=== PATIENT | male | born 1940 | race Caucasian/White ===

== ENCOUNTER 2020-09-12 07:20 | Inpatient (IN) | payer MEDICARE, SELFPAY ==
[2020-09-12] VITALS (16 sets, daily range): BP systolic 95–126; BP diastolic 51–83; PULSE 74–98; RESP 16–26; TEMP 36.8–37.7; O2SAT 93–98; BMI 25.8; BMI 28.2
--- NOTE | 2020-09-12 07:24 | EKG12_ITS ---
Test Reason : PALP Blood Pressure : / mmHG Vent. Rate : 096 BPM Atrial Rate : 096 BPM P-R Int : 170 ms QRS Dur : 120 ms QT Int : 406 ms P-R-T Axes : 070 050 093 degrees QTc Int : 512 ms Normal sinus rhythm Septal infarct , age undetermined Abnormal ECG Confirmed by SHAUNNA ISAACS, MARY ([id number]), editorial specialist JAZLYN DAO ([id number]) on 09/16/2020 9:11:27 AM Referred By: NELSON Confirmed By:DEYA MAZA MD
--- NOTE | 2020-09-12 07:24 | RAD_ITS ---
STUDY: X-RAY CHEST REASON FOR EXAM: Male, 80 years old. Chest pain TECHNIQUE: Frontal view of the chest COMPARISON: None. FINDINGS: There are bilateral interstitial opacities. There are no pleural effusions. There is no pneumothorax. The heart is enlarged. The patient is status post sternotomy. The visualized osseous structures are within normal limits. RAD/Chest 1 View (Portable) IMPRESSION: Bilateral interstitial opacities which may be due to infection or edema. Clinical correlation is recommended. Cardiomegaly. Status post sternotomy. Electronically Signed: Elvin Balderrama MD at 8:14 EDT Tel , Service support ,
--- NOTE | 2020-09-12 07:27 | NURSING ---
NO OLD EKGS
[2020-09-12] MEDS: Aspirin 81 MG TAB.CHEW 324 MG PO (07:32)
[2020-09-12 07:39] LABS: Basophil# 0.07 X10^3/uL; Basophil% 0.6 % (0-1); Eosinophil# 0.07 X10^3/uL; Eosinophils% 0.6 % (0-5); Hematocrit 42.3 % (40-54); Hemoglobin 13.6 g/dL (13.0-16.5); Lymphocyte % 10.3 % (19-41); Mean Corp Hgb Conc 32.2 g/dL (32-36); Mean Corpuscular Hgb 29.9 pg (27.0-32.0); Monocyte# 1.08 X10^3/uL; Monocyte% 8.6 % (0-10); NRBC Flagged by Analyzer 0 % (0-5); Neutrophil % 79.3 % (47-70); Platelet Count 262 K/mm3 (150-450); RBC Distribution Width CV 13.2 % (11.6-14.6); RBC Distribution Width SD 45.1 fl (35.1-43.9); Red Blood Count 4.55 M/mm3 (4.6-6.2); White Blood Count 12.6 K/mm3 (4.4-11.0)
--- NOTE | 2020-09-12 07:50 | ED.DCSUM_ITS ---
- ER Visit Summary Date of Service: 09/12/20 Chief Complaint: Palpitations History of Present Illness: The patient is a [address] 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 Fierro. Patient reports that he has had palpitations intermittently for the past 3 to 4 months. States that they vary in length of time. He denies any chest pain with these. However, he does report that when he exerts himself he gets abdominal pain. He describes this as sore muscles it is 6 out of 10 at worst and 2 out of 10 currently. States that there is no change with food. Patient reports that he has diaphoresis and shortness of breath that come and go. Does not seem to be related to the palpitations. He also complains of orthopnea for the past week. He denies PND. Patient got his second Covid vaccine at the end of June. He denies any fever, chills, cough, diarrhea, melena, or hematochezia. Physical Examination: Vitals: Stable. Afebrile. General: Well-nourished and well-developed. Head: Normocephalic atraumatic. Neck: Supple, no lymphadenopathy. No JVD. Nontender. Cardiovascular: Regular rate and rhythm. 2 out of 6 systolic murmur. Respiratory: No respiratory distress. Clear to auscultation bilaterally. Abdominal: Soft, nontender, nondistended, normal bowel sounds. No guarding, rebound, or peritoneal signs. Back: Nontender. Extremities: Nontender, 2+ edema of his lower extremities bilaterally. Skin: Minimal erythema to his legs bilaterally, no rash. Neurologic: Alert and oriented ?3. Cranial nerves II through XII are intact. Normal strength and sensation. Psych: Normal affect. Test Results: EKG is sinus at 96. There are Q waves in leads V2 and V3. There is no old EKG for comparison. CBC shows a white count of 12.6 with 79 segmented neutrophils and 10 lymphocytes. Chem-7 shows a BUN of 27, creatinine 1.42, glu cose of 126. LFTs are normal. Lipase is 65. Troponin 0 0.046. TSH is 7.36. Free T4 1.1, free T3 2.0. COVID-19 is negative. BNP is 659.7. Clinical Impression(s) from Imaging Studies Chest X-Ray 09/12/20 07:24 IMPRESSION: Bilateral interstitial opacities which may be due to infection or edema. Clinical correlation is recommended. Cardiomegaly. Status post sternotomy. Electronically Signed: Elvin Balderrama MD at 8:14 EDT Tel , Service support , Emergency Department Course and Treatment: Patient had an IV placed. He was given aspirin p.o. He is resting comfortably. Treatment Plan: Patient does not have chest pain with exertion. However, he does complain of abdominal pain with exertion. I question whether this may be an anginal equivalent. He was scheduled to have blood work, a stress test, and echocardiogram next week. He will be discussed with the hospitalist and admitted for further evaluation and treatment. Disposition: Admitted in stable condition. Impression: 1. Palpitations. 2. CHF. 3. Abdominal pain, possible anginal equivalent. 4. Heart score of 4. This note was generated with [employer] dictation software. It may contain incorrect words, spelling, and punctuation that were not noted in review of the chart prior to signing ED Disposition - Plan for ED Patient: Referrals: Betito Taylor MD [Primary Care Provider] -
[2020-09-12 08:01] LABS: International Normalized Ratio 1.3; Prothrombin Time (Protime)PT. 15.2 SECONDS (11.7-14.9)
[2020-09-12 08:02] LABS: Anion Gap 4 (5-15); BUN 27 mg/dL (7-18); Calcium,Total 8.8 mg/dL (8.5-10.1); Chloride 106 mmol/L (98-107); Creatinine, Serum 1.42 mg/dL (0.70-1.30); EST Glomerular Filtration Rate 51 mL/min (>60); Est Glom Filt Rate - Afr Amer 62 mL/min (>60); Estimated Creatinine Clearance 40.81 ml/min; Glucose 126 mg/dL (74-106); Potassium 4.4 mmol/L (3.5-5.1); Sodium Level 137 mmol/L (136-145); Thyroid Stim Hormone (TSH) 7.36 uIU/mL (0.358-3.74)
[2020-09-12 08:09] LABS: Lipase 65 U/L (73-393)
[2020-09-12 08:10] LABS: AST(SGOT) 19 U/L (15-37); Alanine Aminotransfer ALT/SGPT 27 U/L (16-61); Albumin, Serum 3.4 g/dL (3.2-5.0); Alkaline Phosphatase 76 U/L (45-117); Bilirubin, Direct 0.26 mg/dL (0.00-0.30); Protein, Total 7.4 g/dL (6.4-8.2)
[2020-09-12 08:50] LABS: BNP,B-Type NATRIURETIC PEPTIDE 659.7 pg/mL (0-100)
--- NOTE | 2020-09-12 09:06 | NURSING ---
DR SHADE PAEZ
--- NOTE | 2020-09-12 09:21 | NURSING ---
PCU CHF, PALPITATIONS NAUMAH
--- NOTE | 2020-09-12 09:49 | ECHOD_ITS ---
Reason For Study: Chest Pain Procedure This was a 2D Doppler, Color Flow transthoracic echocardiogram. Contrast injection was performed. Exam performed portable in patient room. Left Ventricle Moderately dilated left ventricle. The 3D full volume ejection fraction is EF Calculated 28% %. Right Ventricle Normal right ventricle. Normal systolic function. Atria The left atrium is severely enlarged. The right atrium is moderately enlarged. Intact atrial septum. Mitral Valve Bileaflet diffuse mitral valve thickening. Myxomatous mitral valve. Severe (4+) mitral valve insufficiency. Tricuspid Valve Normal tricuspid valve. Mild (1+) tricuspid valve insufficiency. Mild to moderate (1-2+) eccentric tricuspid valve insufficiency. Aortic Valve Normal aortic valve. Pulmonic Valve The pulmonic valve is not well visualized. Great Vessels Normal inferior vena cava. Medication Diluted definity 2ml given slow IV push to enhance endocardial definition. MMode/2D Measurements & Calculations LVIDd: 5.5 cm IVSd: 1.0 cm Ao root diam: 3.7 cm LVIDs: 4.5 cm LVPWd: 1.0 cm RVDd: 4.0 cm FS: 18.4 % LAV(MOD-bp): 106.5 ml LVAd ap4: 35.8 cm2 SV(MOD-sp4): 35.9 ml LAV(MOD-bp) Indexed: 54.5 ml/m2 EDV(MOD-sp4): 139.7 ml LAV(MOD-sp2): 115.2 ml EDV(sp4-el): 145.7 ml LAV(MOD-sp4): 88.2 ml LVAs ap4: 29.6 cm2 ESV(MOD-sp4): 103.9 ml ESV(sp4-el): 104.2 ml EF(MOD-sp4): 25.7 % EF(sp4-el): 28.5 % SV(sp4-el): 41.5 ml LA A4 area: 26.8 cm2 LA dimension(2D): 5.5 cm RA A4 area: 19.1 cm2 Doppler Measurements & Calculations MV E max beni: 71.7 cm/sec Lat Peak E' Beni: 4.4 cm/sec Med Peak E' Beni: 5.1 cm/sec MV A max beni: 113.8 cm/sec E/E' lat: 16.3 E/E' med: 14.1 MV E/A: 0.63 Ao V2 max: 93.8 cm/sec LV V1 max: 77.8 cm/sec PA V2 max: 96.3 cm/sec Ao max P.5 mmHg LV V1 max P.4 mmHg Ao V2 mean: 71.1 cm/sec Ao mean P.1 mmHg Ao V2 VTI: 19.3 cm PI end-d beni: 131.0 cm/sec TR max beni: 350.5 cm/sec TR max P.1 mmHg ECHO/Echo Complete Interpretation Summary The 3D full volume ejection fraction is EF Calculated 28% %. Severe Global LV Hypokinesia Severe MR ModerateTR Ordering Physician: Arin Yo Referring Physician: Sincere Taylor Performed By: Rosemarie Kiran, DAOLFO, RVT
--- NOTE | 2020-09-12 09:51 | VDLE_ITS ---
Reason For Study: SWELLING RIGHT LEFT CFV is compressible, spontaneous, phasic, GSV is normal. competent and demonstrates normal CFV is compressible, spontaneous, phasic, augmentation. competent, and demonstrates normal Procedure augmentation. This is a venous duplex using B-mode, color FV is compressible, spontaneous, phasic, flow and spectral Doppler. competent and demonstrates normal Exam performed portable in patient room. augmentation. A preliminary report was called and/or faxed POP V is compressible, spontaneous, phasic, to PCU. competent and demonstrates normal augmentation. T/P Trunk is compressible. PTV is compressible. LT PerV is compressible. VL/Venous Duplex US, Unilateral Interpretation Summary There is no evidence of left lower extremity deep vein thrombosis. Left great s aphenous vein appears patent and compressible segmentally. Normal flow patterns right common femoral vein Ordering Physician: Arin Yo Referring Physician: RONAN AJ Performed By: Soledad Anderson, ADOLFO, RVT
--- NOTE | 2020-09-12 11:31 | EKG12_ITS ---
Test Reason : CHEST PAIN Blood Pressure : / mmHG Vent. Rate : 074 BPM Atrial Rate : 074 BPM P-R Int : 152 ms QRS Dur : 162 ms QT Int : 460 ms P-R-T Axes : 046 -04 169 degrees QTc Int : 510 ms Normal sinus rhythm Left bundle branch block Abnormal ECG Confirmed by SANTIAGO ISAACS, BRUNA ([id number]), editor department ZOYA BENNETT ([id number]) on 09/17/2020 10:36:35 AM Referred By: SHADE Confirmed By:BRUNA HENDERSON MD
[2020-09-12] MEDS: 0.9% Saline Lock 10 ML Syringe IV ×2 (11:50→17:37)
[2020-09-12] MEDS: Atenolol 50 MG Tablet PO (11:50)
[2020-09-12] MEDS: Vitamin E 400 UNITS Capsule PO (11:50)
[2020-09-12] MEDS: Furosemide 40 MG/4 ML Vial IV ×2 (11:50→17:37)
[2020-09-12] MEDS: Multivitamins,Ther W-Minerals Tablet 1 TABLET PO (11:50)
[2020-09-12] MEDS: Lisinopril 20 MG Tablet PO (11:50)
[2020-09-12] MEDS: APIXABAN 5 MG TABLET PO ×2 (11:52→21:07)
--- NOTE | 2020-09-12 14:00 | CASEMGMT ---
RN KAYLEY MEDICAL OFFICE COORDINATOR CM to room to meet with patient for initial transition planning/care coordination assessment. RN KAYLEY introduced self and role at [facility]. Pt voices understanding and consents to assessment at this time. Pt resting in bed in no distress at this time. @ bedside. Pt is A/O at this time and answers all questions appropriately. Care providers, pharmacy, and demographics verified/updated at this time. PCP: Dr Taylor Specialists: Dr Vasquez--adult probation officer @ . Pt/ state pt would like to switch to [facility]. Preferred Pharmacy:[facility] Insurance: [employer] [facility] Prescription Benefit: Yes Living Will/HPOA: Has both LW and Healthcare POA, who is his , Kimi. LNOK: , Kimi Living Arrangements: Lives w/ in one-story home w/3 steps to enter. Independent w/ADL's. /pt share home mgmt tasks. Transportation: Pt states drives self and states no transportation concerns at this time. also drives. DME: Denies using any DME and denies needs. Has available/but does not use: shower chair, cane, walker, HHC/SNF: No history of either. No needs identified. CCN: Pt was just recently started on Lasix last week. BTNP: 659. Pt states he has never been told he has CHF. Discussed CCN with pt/ and they are interested in further information and agreeable to referral. Call placed to CCN and left re: new referral. Order placed. Pt wishes to return home and states has no concerns with going home at time of discharge. CM to follow for any further discharge planning/needs. Pt/ voice no further concerns/needs at this time. Advised pt/ to ask for CM if any further questions/concerns/needs arise. They voice understanding. PLAN: Home w/spousal support and discharge plans in place. CCN referral made. Emely AGUIAR RN, CM
--- NOTE | 2020-09-12 14:39 | PCM.HP.STD ---
Problem List (1) Hypoxia Status: Acute (2) Chest pain Status: Acute Qualifiers: Chest pain type: unspecified Qualified Code(s): R07.9 - Chest pain, unspecified (3) Elevated troponin Status: Acute (4) Hypertension Status: Chronic Qualifiers: Hypertension type: essential hypertension Qualified Code(s): I10 - Essential (primary) hypertension (5) CAD (coronary artery disease) Status: Acute Qualifiers: Coronary Disease-Associated Artery/Lesion type: unspecified vessel or lesion type [place] vs. transplanted heart: [place] heart Associated angina: unspecified whether angina present Qualified Code(s): I25.10 - Atherosclerotic heart disease of [place] coronary artery without angina pectoris (6) Bilateral carotid artery stenosis Status: Acute (7) Hyperlipidemia Status: Acute Qualifiers: Hyperlipidemia type: unspecified Qualified Code(s): E78.5 - Hyperlipidemia, unspecified (8) History of coronary artery bypass graft Status: Chronic (9) History of CO (myocardial infarction) Status: Chronic (10) Paroxysmal A-fib Status: Chronic History of Present Illness Date of Admission: 09/12/20 Chief Complaint: Palpitations - 1 day The patient is a 80 year old M with past medical history of CAD status post CABG, status post stents, paroxysmal atrial fibrillation, hypertension, hyperlipidemia who follows with cardiology group in [facility]. 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 Patient presents to the emergency department with complaints of palpitations. He last saw his biomass boiler operator 5 days ago and was due to get blood work and stress test done. He complains also of some diaphoresis and shortness of breath especially with exertion. He admits to orthopnea but no PND. Denies any fever or chills or diarrhea or any sick contact. He has been vaccinated. Vitals in the ED were stable. WBC count was 12.6, hemoglobin 13.6, platelet 262, INR 1.3, BMP was remarkable except for BUN of 27, creatinine 1.42. His BNPep was 659.7. Troponin was 0.046. Chest x-ray showed cardiomegaly, bilateral interstitial opacities. 2D echo shows EF of 28%, moderately dilated left ventricle, severe global LV hypokinesia, severe MR, moderate TR Past Medical History Past Medical History (Chronic Problems): Chronic Problems Hypertension (Chronic) History of coronary artery bypass graft (Chronic) History of CO (myocardial infarction) (Chronic) Paroxysmal A-fib (Chronic) Allergies No Known Allergies Allergy (Verified 09/12/20 07:21) Home Medications: Ambulatory Orders Medication Instructions Recorded Apixaban [Eliquis] 5 mg PO BID 09/12/20 Atenolol [Tenormin (Beta Ralph)] 50 mg PO BID 09/12/20 Benazepril HCl 20 mg PO DAILY 09/12/20 Furosemide 20 mg PO DAILY 09/12/20 Multivit-Min/FA/Lycopen/Lutein 1 each PO DAILY 09/12/20 [Centrum Silver Men Tablet] Nitroglycerin 0.4 mg SL Q5M PRN 09/12/20 Simvastatin [Zocor] 20 mg PO QHS 09/12/20 Vitamin E 400 unit PO QODAY 09/12/20 Surgical History: coronary bypass surgery, - - carotid endarterectomy Psychiatric History: No pertinent psych hx Lives: Spouse/ Significant Other Smoking Status: Never smoker Tobacco Use: Non-smoker Alcohol: None Drugs: None Review of Systems Comment: Constitutional: Reports: Malaise, Weakness, Fatigue. Denies: Anorexia, Chills, Fever, Night Sweats, Weight Change. Eyes: Denies: Blurred vision, Cataracts, Conjunctivae Inflammation, Pain, Redness, Vision Change. HEENT: Denies: Difficulty Hearing, Difficulty Swallowing, Head Aches, Hearing Changes, Sinus Congestion, Sinus Drainage. Cardiovascular: See HPI. Respiratory: Denies: Cough, Shortness of breath at rest, Sputum production. Gastrointestinal: Denies: Abdominal Pain, Nausea, Vomiting. Genitourinary: Denies: Dysuria. Musculoskeletal: Denies: Joint Pain, Joint stiffness, Joint swelling, Joint Tenderness. Skin: Denies: Rash, Wounds. Neurological: Denies: Numbness, Tingling, Focal weakness VTE Information - Inpt Only VTE Present on Admission: No VTE Pharm Prophylaxis ordered?: Yes Patient Problems: Active and Suspected Problems Hypoxia (Acute) Chest pain (Acute) Elevated troponin (Acute) CAD (coronary artery disease) (Acute) Bilateral carotid artery stenosis (Acute) Hyperlipidemia (Acute) - Physical Exam Vitals/I&O's: Vital Signs Temp Pulse Resp BP Pulse Ox 98.3 F 75 18 114/76 95 09/12/20 10:08 09/12/20 10:27 09/12/20 10:08 09/12/20 10:08 09/12/20 10:08 Oxygen Flow Rate (L/min) 2 Oxygen Delivery Method Nasal Cannula Weight: 81.8 kg Body Mass Index (BMI) 28.2 Intake and Output for Last 24 Hours 09/10/20 09/11/20 09/12/20 23:59 23:59 23:59 Intake Total 240 / 240 Balance 240 / 240 General: Alert, Oriented x3, Cooperative, No apparent distress HEENT: Atraumatic, PERRLA, EOMI, Normocephalic Oral: Moist Mucosa Neck: Supple Lungs: Diminished Cardiovascular: Regular rate, Regular Rhythm, Normal S1, Normal S2, No murmurs Abdomen: Bowel Sounds Present, Soft, Non Tender, Non-Distended, No Hepato-splenomegaly Extremities: No edema Skin: No rashes Musculoskeletal: No Tenderness to Palpation of Joints or Extremities Lymphatic: No Cervical, Supraclavicular, or Inguinal Adenopathy Neurological: Cranial nerves II-XII grossly intact Psych/Mental Status: Normal Affect, Appropriate Microbiology Past 72 Hours 09/12/20 08:17 Nasal Secretion SARS-CoV-2 Antigen (Rapid) - Final Laboratory Results 09/12/20 07:30: WBC 12.6 H, RBC 4.55 L, Hgb 13.6, Hct 42.3, MCV 93.0, MCH 29.9, MCHC 32.2, RDW Std Deviation 45.1 H, RDW Coeff of Constantino 13.2, Plt Count 262, MPV 9.0, Immature Gran % (Auto) 0.600, Neut % (Auto) 79.3 H, Lymph % (Auto) 10.3 L, [place] % (Auto) 8.6, Eos % (Auto) 0.6, Baso % (Auto) 0.6, Absolute Neuts (auto) 10.0 H, Absolute Lymphs (auto) 1.30, Nucleated RBC % 0 09/12/20 07:30: PT 15.2 H, INR 1.3, APTT 25.0 09/12/20 07:30: Sodium 137, Potassium 4.4, Chloride 106, Carbon Dioxide 27.0, Anion Gap 4 L, BUN 27 H, Creatinine 1.42 H, Estim Creat Clear Calc 40.81, Est GFR (MDRD) Af Amer 62, Est GFR (MDRD) Non-Af 51 L, BUN/Creatinine Ratio 19.0, Glucose 126 H, Calcium 8.8, Troponin I 0.046 H, TSH 7.36 H 09/12/20 07:30: B-Natriuretic Peptide 659.7 H 09/12/20 07:30: Total Bilirubin 0.90, Direct Bilirubin 0.26, AST 19, ALT 27, Alkaline Phosphatase 76, Total Protein 7.4, Albumin 3.4, Globulin 4.0 09/12/20 07:30: Lipase 65 L 09/12/20 07:30: Free T4 1.10, Free T3 pg/dL 2.0 L 09/12/20 10:27: Troponin I 0.042 09/12/20 13:27: Troponin I 0.030 Current Medications Acetaminophen (Acetaminophen 325 Mg Tablet) 650 mg PO Q6H PRN PRN PRN Reason: Pain Score 1-10/Temp > 100.7 F Al Hydroxide/Mg Hydroxide (Mag Hydrox/Al Hydrox/Simeth 30 Ml Udc) 30 ml PO Q6H PRN PRN PRN Reason: Gastric Burning Apixaban (Apixaban 5 Mg Tablet) 5 mg PO BID [facility] Last Admin: 09/12/20 11:52 Dose: 5 mg Documented by: Atenolol (Atenolol 50 Mg Tablet) 50 mg PO BID [facility] Last Admin: 09/12/20 11:50 Dose: 50 mg Documented by: Atorvastatin Calcium (Atorvastatin Calcium 10 Mg Tablet) 10 mg PO QHS [facility] Furosemide (Furosemide 40 Mg/4 Ml Vial) 40 mg IV BID@1000,1800 [facility] Last Admin: 09/12/20 11:50 Dose: 40 mg Documented by: Sodium Chloride () 250 mls @ 15 mls/hr IV .[id number] PRN PRN Reason: Saline Flush Sodium Chloride () 250 mls @ 15 mls/hr IV .[id number] PRN PRN Reason: Additional IVPB Infusion Lisinopril (Lisinopril 20 Mg Tablet) 20 mg PO DAILY [facility] Last Admin: 09/12/20 11:50 Dose: 20 mg Documented by: Multivitamins/Minerals (Multivitamins,Ther W-Minerals Tablet) 1 tablet PO DAILY@0800 [facility] Last Admin: 09/12/20 11:50 Dose: 1 tablet Documented by: Nitroglycerin (Nitroglycerin (Inpatient Use) 0.4 Mg Tab.Subl) 0.4 mg SL Q5M PRN PRN Reason: CARDIAC/CHEST PAIN Sodium Chloride (0.9% Saline Lock 10 Ml Syringe) 10 - 40 ml IV UD PRN PRN Reason: SALINE FLUSH Last Admin: 09/12/20 11:50 Dose: 10 ml Documented by: Vitamin E (Vitamin E 400 Units Capsule) 400 units PO DAILYCM [facility] Last Admin: 09/12/20 11:50 Dose: 400 units Documented by: Assessment/Plan All Active Problems Hypoxia (Acute) Chest pain (Acute) Elevated troponin (Acute) CAD (coronary artery disease) (Acute) Bilateral carotid artery stenosis (Acute) Hyperlipidemia (Acute) 1. Acute chest pain, atypical in a patient with history of CAD status post CABG No cardiac history in [facility]; patient gets his care with [facility] in [place] EKG shows no acute ST-T changes, troponin is minimally elevated at 0.046 We will trend troponin, cardiology consult, stress test in a.m. Continue on apixaban, atenolol, benazepril, atorvastatin 2. Acute on chronic systolic CHF/valvular heart disease, EF 28%, severe atrial regurgitation, tricuspid regurgitation Admitting BNPep is 659.7. Hold oral Lasix, continue on Lasix 40 mg IV twice daily, continue CHF protocol 3. 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 daily 4. Paroxysmal atrial fibrillation, patient is in normal sinus rhythm, continue on atenolol and apixaban 5. Hypertension, controlled, continue on lisinopril, atenolol 6. DVT prophylaxis?on apixaban 7. CODE STATUS?full code I discussed and explained in details the various types of CODE STATUS-full code, DNR CCA, DNR CC. Patient chose to be full code. He wants everything done to keep him alive. Time spent discussing CODE STATUS 16minutes Inpatient E&M: 92756 Init Hosp L3 Procedures: 27298 Advncd Care Plan 30 Min
[2020-09-12] MEDS: Levothyroxine 25 MCG TABLET 12.5 MCG PO (16:20)
[2020-09-12] MEDS: Atorvastatin Calcium 10 MG Tablet PO (21:07)
--- NOTE | 2020-09-12 22:50 | PCM.CONS.C ---
Reason for Consult Date of Consultation: 09/12/20 History of Present Illness: This patient seen and evaluated today at bedside along with the nursing staff, at bedside at time of evaluation. The patient is a 80 year old M patient presented with symptoms of palpitation, symptoms shortness of breath on exertion. This patient has extensive cardiac history with history of previous myocardial infarction and history of: Artery bypass, levi 1994, according to patient had 5 bypass Subsequently in 1999 had a history of myocardial infarction requiring coronary stent and has been following which is a fork repairer at the [facility] Dr. Fierro Evidently patient had been seen here around a week ago when he was scheduled to have a stress test as well as a blood test Due to symptoms of palpitation shortness of breath he came to the ER here at the [facility] where he was admitted for cardiac evaluation. [] Assessment and plan; 1. Patient had acute on chronic systolic heart failure with a review of the echocardiogram showed severe LV systolic dysfunction with global LV hypokinesia ejection fraction of around 2 to 28%, severely enlarged left atrium with severe mitral regurgitation, moderate tricuspid dilatation. Patient started on IV Lasix 40 mg twice a day, CHF protocol, 2. 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 3. Patient had history of CAD with CABG and a prior coronary artery stent mild elevation of high sensitive troponin I noted which is trending down As the patient was scheduled for outpatient evaluation by stress test and now presenting with symptoms of palpitation shortness of breath will evaluate with nuclear stress test Persantine sestamibi during this admission. 4. Other medical problems include history of hypertension, hyperlipidemia and bilateral carotid stenosis. Past Medical History Allergies/Adverse Reactions: Allergies No Known Allergies Allergy (Verified 09/12/20 07:21) Home Medications: Ambulatory Orders Medication Instructions Recorded Apixaban [Eliquis] 5 mg PO BID 09/12/20 Atenolol [Tenormin (Beta Ralph)] 50 mg PO BID 09/12/20 Benazepril HCl 20 mg PO DAILY 09/12/20 Furosemide 20 mg PO DAILY 09/12/20 Multivit-Min/FA/Lycopen/Lutein 1 each PO DAILY 09/12/20 [Centrum Silver Men Tablet] Nitroglycerin 0.4 mg SL Q5M PRN 09/12/20 Simvastatin [Zocor] 20 mg PO QHS 09/12/20 Vitamin E 400 unit PO QODAY 09/12/20 Past Medical History (Chronic Problems): Chronic Problems Hypertension (Chronic) History of coronary artery bypass graft (Chronic) History of NE (myocardial infarction) (Chronic) Paroxysmal A-fib (Chronic) Surgical History: coronary bypass surgery, - - carotid endarterectomy Psychiatric History: No pertinent psych hx Lives: Spouse/ Significant Other Smoking Status: Never smoker Tobacco Use: Non-smoker Alcohol: None Drugs: None Objective: Vital Signs Temp Pulse Resp BP Pulse Ox 99.5 F H 79 18 100/51 L 94 09/12/20 22:42 09/12/20 22:42 09/12/20 22:42 09/12/20 22:42 09/12/20 22:42 Oxygen Flow Rate (L/min) 3 Oxygen Delivery Method Nasal Cannula Weight: 180 lb 5.41 oz Body Mass Index (BMI) 28.2 Intake and Output for Last 24 Hours 09/10/20 09/11/20 09/12/20 23:59 23:59 23:59 Intake Total 720 / 720 Output Total 2625 / 2625 Balance -1905 / -1905 General: Alert, Oriented x 3 Neck: Supple Chest Wall: Midline Sternotomy Incision Lungs: Diminished Vinod Bases Cardiovascular: Regular Rhythm Abdomen: Bowel Sounds Present, Soft Extremities: No Cyanosis, No Clubbing, No edema Neurological: No Focal Motor or Sensory Deficit Psych/Mental Status: Appropriate 09/12/20 07:30: WBC 12.6 H, RBC 4.55 L, Hgb 13.6, Hct 42.3, MCV 93.0, MCH 29.9, MCHC 32.2, Plt Count 262, MPV 9.0, Immature Gran % (Auto) 0.600, Neut % (Auto) 79.3 H, Lymph % (Auto) 10.3 L, [place] % (Auto) 8.6, Eos % (Auto) 0.6, Baso % (Auto) 0.6, Absolute Neuts (auto) 10.0 H, Nucleated RBC % 0 09/12/20 07:30: PT 15.2 H, INR 1.3, APTT 25.0 09/12/20 07:30: Sodium 137, Potassium 4.4, Chloride 106, Carbon Dioxide 27.0, Anion Gap 4 L, BUN 27 H, Creatinine 1.42 H, Est GFR (MDRD) Af Amer 62, Est GFR (MDRD) Non-Af 51 L, BUN/Creatinine Ratio 19.0, Glucose 126 H, Calcium 8.8, Troponin I 0.046 H 09/12/20 07:30: B-Natriuretic Peptide 659.7 H 09/12/20 07:30: Total Bilirubin 0.90, Direct Bilirubin 0.26 09/12/20 10:27: Troponin I 0.042 09/12/20 13:27: Troponin I 0.030 Rhythm: Normal sinus rhythm EKG: Poor R wave progression across the chest leads, age indeterminate anterior NE. ECHO: LV systolic dysfunction, ejection fraction calculated 28%, global LV hypokinesia, severe mitral regurgitation, moderate tricuspid regurgitation
[2020-09-13] VITALS (14 sets, daily range): BP systolic 96–112; BP diastolic 51–63; PULSE 74–83; RESP 16–18; TEMP 36.9–37.6; O2SAT 86–96
[2020-09-13] MEDS: Levothyroxine 25 MCG TABLET 12.5 MCG PO (05:31)
[2020-09-13 07:12] LABS: Absolute Neutrophil Count 8.9 X10^3/uL (2.0-7.7); Basophil# 0.04 X10^3/uL; Basophil% 0.4 % (0-1); Eosinophil# 0.03 X10^3/uL; Eosinophils% 0.3 % (0-5); Hematocrit 37.8 % (40-54); Hemoglobin 12.3 g/dL (13.0-16.5); Lymphocyte % 9.7 % (19-41); Mean Corp Hgb Conc 32.5 g/dL (32-36); Mean Corpuscular Hgb 29.6 pg (27.0-32.0); Mean Corpuscular Volume 91.1 fL (80-94); Mean Platelet Vol. 9.4 fl (6.2-12.0); Monocyte# 1.21 X10^3/uL; Monocyte% 10.7 % (0-10); NRBC Flagged by Analyzer 0 % (0-5); Neutrophil # 8.86 X10^3/uL (2.7-7.7); Neutrophil % 78.4 % (47-70); Platelet Count 224 K/mm3 (150-450); RBC Distribution Width CV 13.3 % (11.6-14.6); RBC Distribution Width SD 44.8 fl (35.1-43.9); Red Blood Count 4.15 M/mm3 (4.6-6.2); White Blood Count 11.3 K/mm3 (4.4-11.0)
[2020-09-13 07:40] LABS: ALB/GLOB Ratio 0.8 RATIO (0.9-2.4); AST(SGOT) 12 U/L (15-37); Alanine Aminotransfer ALT/SGPT 19 U/L (16-61); Albumin, Serum 2.9 g/dL (3.2-5.0); Alkaline Phosphatase 60 U/L (45-117); Anion Gap 5 (5-15); BUN 27 mg/dL (7-18); BUN/Creat Ratio 20.8 RATIO (10-20); Calcium,Total 8.2 mg/dL (8.5-10.1); Chloride 103 mmol/L (98-107); Cholesterol 84 mg/dL (200); EST Glomerular Filtration Rate 57 mL/min (>60); Est Glom Filt Rate - Afr Amer 68 mL/min (>60); Estimated Creatinine Clearance 43.08 ml/min; Globulin 3.6 g/dL (2.2-4.2); Glucose 112 mg/dL (74-106); High Density Lipoprotein 39 mg/dL; Potassium 3.7 mmol/L (3.5-5.1); Protein, Total 6.5 g/dL (6.4-8.2); Sodium Level 136 mmol/L (136-145); Triglycerides 57 mg/dL; Very Low Density Lipoprotein 11 mg/dL (5-40)
--- NOTE | 2020-09-13 10:11 | PCM.PN.CARD ---
Objective: Vital Signs Temp Pulse Resp BP Pulse Ox 98.6 F 76 16 99/55 L 93 09/13/20 08:24 09/13/20 08:24 09/13/20 08:24 09/13/20 08:24 09/13/20 08:24 Oxygen Flow Rate (L/min) 3 Oxygen Delivery Method Nasal Cannula Weight: 173 lb 1.006 oz Body Mass Index (BMI) 28.2 Intake and Output for Last 24 Hours 09/11/20 09/12/20 09/13/20 23:59 23:59 23:59 Intake Total 720 / 720 Output Total 2625 / 2625 250 / 250 Balance -1905 / -1905 -250 / -250 09/12/20 10:27: Troponin I 0.042 09/12/20 13:27: Troponin I 0.030 09/13/20 06:35: WBC 11.3 H, RBC 4.15 L, Hgb 12.3 L, Hct 37.8 L, MCV 91.1, MCH 29.6, MCHC 32.5, Plt Count 224, MPV 9.4, Immature Gran % (Auto) 0.500, Neut % (Auto) 78.4 H, Lymph % (Auto) 9.7 L, [place] % (Auto) 10.7 H, Eos % (Auto) 0.3, Baso % (Auto) 0.4, Absolute Neuts (auto) 8.9 H, Nucleated RBC % 0 09/13/20 06:35: Sodium 136, Potassium 3.7, Chloride 103, Carbon Dioxide 28.0, Anion Gap 5, BUN 27 H, Creatinine 1.30, Est GFR (MDRD) Af Amer 68, Est GFR (MDRD) Non-Af 57 L, BUN/Creatinine Ratio 20.8 H, Glucose 112 H, Calcium 8.2 L, Total Bilirubin 1.50 H, Triglycerides 57, Cholesterol 84, LDL Cholesterol 34, VLDL Cholesterol 11, HDL Cholesterol 39 L Rhythm: Sinus rhythm EKG: LBBB/Normal sinus ECHO: Severe LV systolic dysfunction Medical Necessity - Tobacco Use Smoking Status: Never smoker Tobacco Use: Non-smoker Assessment/Plan 80-year-old patient, seen and evaluated today at bedside along with the nursing staff Still having symptoms of shortness of breath He does not have any symptoms of chest pain. Review of telemetry showed underlying normal sinus The echocardiogram showed severe LV systolic dysfunction ejection fraction of 28%, with severe mitral regurgitation Assessment and plan; 1. Patient with acute on chronic systolic heart failure Reviewed the current medication his blood pressure in the lower range systolic blood pressure around 90 mmHg We will hold lisinopril and carvedilol we will continue on Lasix We will continue on CHF protocol 2. 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 Patient has a paroxysmal atrial fibrillation currently on Eliquis based on his creatinine clearance, patient remains in normal sinus. 4. Other medical problem include history of hypertension hyperlipidemia stable we will continue current treatment.
[2020-09-13] MEDS: APIXABAN 5 MG TABLET PO ×2 (10:17→22:02)
[2020-09-13] MEDS: Furosemide 40 MG/4 ML Vial IV ×2 (10:18→18:20)
[2020-09-13] MEDS: Multivitamins,Ther W-Minerals Tablet 1 TABLET PO (10:18)
[2020-09-13] MEDS: Vitamin E 400 UNITS Capsule PO (10:18)
--- NOTE | 2020-09-13 10:28 | CASEMGMT ---
ZARIA ZALDIVAR in to discuss CHÁVEZ form with patient. RN KAYLEY explained CHÁVEZ form to patient, patient voiced understanding. Patient signed CHÁVEZ form and filed in chart. Patient provided with copy of signed CHÁVEZ form. Patient had no further questions or concerns at this time.
--- NOTE | 2020-09-13 12:32 | PCM.PN.HOSP ---
Patient Problems: Active and Suspected Problems Hypoxia (Acute) Chest pain (Acute) Elevated troponin (Acute) CAD (coronary artery disease) (Acute) Bilateral carotid artery stenosis (Acute) Hyperlipidemia (Acute) Subjective: Doing well, no issues overnight. Denies any current chest pain. Palpitations are under control Vitals/I&O's: Vital Signs Temp Pulse Resp BP Pulse Ox 99.2 F H 78 16 103/56 L 95 09/13/20 10:15 09/13/20 10:15 09/13/20 10:15 09/13/20 10:15 09/13/20 10:15 Oxygen Flow Rate (L/min) 3 Oxygen Delivery Method Nasal Cannula Weight: 173 lb 1.006 oz Body Mass Index (BMI) 28.2 Intake and Output for Last 24 Hours 09/11/20 09/12/20 09/13/20 23:59 23:59 23:59 Intake Total 720 / 720 Output Total 2625 / 2625 1125 / 1125 Balance -1905 / -1905 -1125 / -1125 General: Alert, Oriented x3, Cooperative, No apparent distress HEENT: Atraumatic, PERRLA, EOMI, Normocephalic Oral: Moist Mucosa Neck: Supple, No JVD Lungs: Clear to auscultation, Normal air movement, No rhonchi, No wheeze, No rales Cardiovascular: Regular rate, Regular Rhythm, Normal S1, Normal S2, No murmurs Abdomen: Soft, Non Tender, Non-Distended, No Hepato-splenomegaly Extremities: No edema, Capillary Refill Less than 3 Seconds Skin: No rashes, No breakdown Neurological: Neuro grossly intact, Sensory exam intact to light touch and pain Psych/Mental Status: Normal Affect, Appropriate Microbiology Past 72 Hours 09/12/20 08:17 Nasal Secretion SARS-CoV-2 Antigen (Rapid) - Final Laboratory Results 09/12/20 13:27: Troponin I 0.030 09/13/20 06:35: WBC 11.3 H, RBC 4.15 L, Hgb 12.3 L, Hct 37.8 L, MCV 91.1, MCH 29.6, MCHC 32.5, RDW Std Deviation 44.8 H, RDW Coeff of Constantino 13.3, Plt Count 224, MPV 9.4, Immature Gran % (Auto) 0.500, Neut % (Auto) 78.4 H, Lymph % (Auto) 9.7 L, Keith % (Auto) 10.7 H, Eos % (Auto) 0.3, Baso % (Auto) 0.4, Absolute Neuts (auto) 8.9 H, Absolute Lymphs (auto) 1.10, Nucleated RBC % 0 09/13/20 06:35: Sodium 136, Potassium 3.7, Chloride 103, Carbon Dioxide 28.0, Anion Gap 5, BUN 27 H, Creatinine 1.30, Estim Creat Clear Calc 43.08, Est GFR (MDRD) Af Amer 68, Est GFR (MDRD) Non-Af 57 L, BUN/Creatinine Ratio 20.8 H, Glucose 112 H, Calcium 8.2 L, Total Bilirubin 1.50 H, AST 12 L, ALT 19, Alkaline Phosphatase 60, Total Protein 6.5, Albumin 2.9 L, Globulin 3.6, Albumin/Globulin Ratio 0.8 L, Triglycerides 57, Cholesterol 84, LDL Cholesterol 34, VLDL Cholesterol 11, HDL Cholesterol 39 L Current Medications Acetaminophen (Acetaminophen 325 Mg Tablet) 650 mg PO Q6H PRN PRN PRN Reason: Pain Score 1-10/Temp > 100.7 F Al Hydroxide/Mg Hydroxide (Mag Hydrox/Al Hydrox/Simeth 30 Ml Udc) 30 ml PO Q6H PRN PRN PRN Reason: Gastric Burning Apixaban (Apixaban 5 Mg Tablet) 5 mg PO BID [facility] Last Admin: 09/13/20 10:17 Dose: 5 mg Documented by: Atenolol (Atenolol 50 Mg Tablet) 50 mg PO BID [facility] Last Admin: 09/13/20 10:08 Dose: Not Given Documented by: Atorvastatin Calcium (Atorvastatin Calcium 10 Mg Tablet) 10 mg PO QHS [facility] Last Admin: 09/12/20 21:07 Dose: 10 mg Documented by: Furosemide (Furosemide 40 Mg/4 Ml Vial) 40 mg IV BID@1000,1800 [facility] Last Admin: 09/13/20 10:18 Dose: 40 mg Documented by: Sodium Chloride () 250 mls @ 15 mls/hr IV .[id number] PRN PRN Reason: Saline Flush Sodium Chloride () 250 mls @ 15 mls/hr IV .[id number] PRN PRN Reason: Additional IVPB Infusion Levothyroxine Sodium (Levothyroxine 25 Mcg Tablet) 12.5 mcg PO DAILY@0600 [facility] Last Admin: 09/13/20 05:31 Dose: 12.5 mcg Documented by: Lisinopril (Lisinopril 20 Mg Tablet) 20 mg PO DAILY [facility] Last Admin: 09/13/20 10:08 Dose: Not Given Documented by: Multivitamins/Minerals (Multivitamins,Ther W-Minerals Tablet) 1 tablet PO DAILY@0800 [facility] Last Admin: 09/13/20 10:18 Dose: 1 tablet Documented by: Nitroglycerin (Nitroglycerin (Inpatient Use) 0.4 Mg Tab.Subl) 0.4 mg SL Q5M PRN PRN Reason: CARDIAC/CHEST PAIN Sodium Chloride (0.9% Saline Lock 10 Ml Syringe) 10 - 40 ml IV UD PRN PRN Reason: SALINE FLUSH Last Admin: 09/12/20 17:37 Dose: 10 ml Documented by: Vitamin E (Vitamin E 400 Units Capsule) [facility] Last Admin: 09/13/20 10:18 Dose: 400 units Documented by: STROKE Vital Signs/Narrative: Vital Signs Temp Pulse Resp BP Pulse Ox 09/13/20 10:15 99.2 F H 78 16 103/56 L 95 Medical Necessity - Tobacco Use Smoking Status: Never smoker Tobacco Use: Non-smoker Assessment/Plan All Active Problems Hypoxia (Acute) Chest pain (Acute) Elevated troponin (Acute) CAD (coronary artery disease) (Acute) Bilateral carotid artery stenosis (Acute) Hyperlipidemia (Acute) 1. Acute chest pain/CAD status post CABG and stents/acute on chronic systolic CHF/valvular heart disease/paroxysmal A. fib/HTN/HLD -MR has now become severe, his EF is 28% -BNP on admission is 659.7, continue with Lasix twice daily -He has had a 5 vessel CABG in the past as well as a heart stent up at [facility] -Cardiology would like to confer with the patient's disc ruler operator about intervention and possibly consider transfer on Tuesday for evaluation and intervention none -Palpitations have resolved -Continue with his Eliquis, atenolol, benazepril, Lipitor 2. Hypothyroidism -TSH is 7.36 with a low T3 and a normal T4 -Continue with Synthroid at 12.5 mcg daily DVT: Eliquis OBSV E&M: [id number] Subsequent observation care L2
[2020-09-13] MEDS: Atorvastatin Calcium 10 MG Tablet PO (22:01)
[2020-09-13] MEDS: Atenolol 50 MG Tablet PO (22:02)
[2020-09-14] VITALS (9 sets, daily range): BP systolic 104–124; BP diastolic 49–61; PULSE 68–81; RESP 16; TEMP 36.8–37.3; O2SAT 92–95
[2020-09-14] MEDS: Levothyroxine 25 MCG TABLET 12.5 MCG PO (06:17)
[2020-09-14] MEDS: Vitamin E 400 UNITS Capsule PO (09:01)
[2020-09-14] MEDS: APIXABAN 5 MG TABLET PO ×2 (09:01→22:11)
[2020-09-14] MEDS: Furosemide 40 MG/4 ML Vial IV ×2 (09:01→17:29)
[2020-09-14] MEDS: Multivitamins,Ther W-Minerals Tablet 1 TABLET PO (09:01)
--- NOTE | 2020-09-14 10:12 | PCM.PN.CARD ---
Objective: Vital Signs Temp Pulse Resp BP Pulse Ox 98.3 F 76 16 104/58 L 95 09/14/20 08:55 09/14/20 08:55 09/14/20 08:55 09/14/20 08:55 09/14/20 08:55 Oxygen Flow Rate (L/min) 2 Oxygen Delivery Method Room Air Weight: 167 lb 15.876 oz Body Mass Index (BMI) 28.2 Intake and Output for Last 24 Hours 09/12/20 09/13/20 09/14/20 23:59 23:59 23:59 Intake Total 720 / 720 120 / 120 Output Total 2625 / 2625 1775 / 2825 1500 / 1500 Balance -1905 / -1905 -1775 / -2825 -1380 / -1380 General: Healthy Appearing Lungs: Rales - Vinod Bases Cardiovascular: Regular Rhythm, Normal S1, Normal S2 Abdomen: Bowel Sounds Present, Soft, Non Tender Extremities: No Cyanosis, No Clubbing Neurological: No Focal Motor or Sensory Deficit Rhythm: Sinus rhythm EKG: Underlying left bundle branch block ECHO: Normal echocardiogram, with severe LV dysfunction EF calculated around 28%, severe mitral regurgitation : Medical Necessity - Tobacco Use Smoking Status: Never smoker Tobacco Use: Non-smoker Assessment/Plan 71-year-old patient, seen and evaluated today at bedside in progressive care unit along with the nursing staff His symptoms of shortness of breath improved on the current treatment with IV Lasix and he was maintaining a blood pressure above 100 mmHg The review of the cardiac telemetry showed underlying normal sinus rhythm. 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 Fierro He actually was scheduled to see him as an outpatient however symptoms get worse which shortness of breath on minimal exertion with palpitation and came to the hospital Patient had extensive cardiac history with a history of coronary artery disease prior myocardial infarction, prior CABG x5 and PCI and stent Also had paroxysmal atrial fibrillation was on anticoagulation dose adjusted according to his creatinine clearance Assessment and plan;. He had very mild elevation of high sensitive troponin which is likely secondary to CHF and his symptoms mainly shortness of breath secondary to acute on chronic systolic heart failure Additional problem of severe mitral regurgitation His current medication with lisinopril and beta-mark is on hold due to the low blood pressure From cardiac standpoint I will discussed the case with the catalyst operator gasoline Dr. Owens and would recommend to transfer [place] the [place] [facility] [place]
--- NOTE | 2020-09-14 10:19 | PCM.PN.CARD ---
Objective: Vital Signs Temp Pulse Resp BP Pulse Ox 98.3 F 76 16 104/58 L 95 09/14/20 08:55 09/14/20 08:55 09/14/20 08:55 09/14/20 08:55 09/14/20 08:55 Oxygen Flow Rate (L/min) 2 Oxygen Delivery Method Room Air Weight: 167 lb 15.876 oz Body Mass Index (BMI) 28.2 Intake and Output for Last 24 Hours 09/12/20 09/13/20 09/14/20 23:59 23:59 23:59 Intake Total 720 / 720 120 / 120 Output Total 2625 / 2625 1775 / 2825 1500 / 1500 Balance -1905 / -1905 -1775 / -2825 -1380 / -1380 General: Healthy Appearing Lungs: Clear to auscultation Cardiovascular: Regular Rhythm Abdomen: Bowel Sounds Present, Soft, Non Tender Extremities: No Cyanosis, No Clubbing, No edema Neurological: No Focal Motor or Sensory Deficit Rhythm: EKG: ECHO: Stress Test: Cardiac Cath: PCI: CT Surgery: Holter monitor: EPS: PPM: CXR: Chest CT Scan: Medical Necessity - Tobacco Use Smoking Status: Never smoker Tobacco Use: Non-smoker
--- NOTE | 2020-09-14 12:10 | PN_ITS ---
Patient Problems: Active and Suspected Problems Hypoxia (Acute) Chest pain (Acute) Elevated troponin (Acute) CAD (coronary artery disease) (Acute) Bilateral carotid artery stenosis (Acute) Hyperlipidemia (Acute) Subjective: Feels back to baseline, denies any chest pain, shortness of breath, or palpitations. Vitals/I&O's: Vital Signs Temp Pulse Resp BP Pulse Ox 98.3 F 76 16 104/58 L 95 09/14/20 08:55 09/14/20 08:55 09/14/20 08:55 09/14/20 08:55 09/14/20 08:55 Oxygen Flow Rate (L/min) 2 Oxygen Delivery Method Room Air Weight: 167 lb 15.876 oz Body Mass Index (BMI) 28.2 Intake and Output for Last 24 Hours 09/12/20 09/13/20 09/14/20 23:59 23:59 23:59 Intake Total 720 / 720 120 / 120 Output Total 2625 / 2625 1775 / 2825 2650 / 2650 Balance -1905 / -1905 -1775 / -2825 -2530 / -2530 General: Alert, Oriented x3, Cooperative, No apparent distress HEENT: Atraumatic, PERRLA, EOMI, Normocephalic Oral: Moist Mucosa Neck: Supple, No JVD Lungs: Clear to auscultation, Normal air movement, No rhonchi, No wheeze, No rales Cardiovascular: Regular rate, Regular Rhythm, Normal S1, Normal S2, No murmurs Abdomen: Soft, Non Tender, Non-Distended, No Hepato-splenomegaly Extremities: No edema, Capillary Refill Less than 3 Seconds Skin: No rashes, No breakdown Neurological: Neuro grossly intact, Sensory exam intact to light touch and pain Psych/Mental Status: Normal Affect, Appropriate Microbiology Past 72 Hours 09/12/20 08:17 Nasal Secretion SARS-CoV-2 Antigen (Rapid) - Final Current Medications Acetaminophen (Acetaminophen 325 Mg Tablet) 650 mg PO Q6H PRN PRN PRN Reason: Pain Score 1-10/Temp > 100.7 F Al Hydroxide/Mg Hydroxide (Mag Hydrox/Al Hydrox/Simeth 30 Ml Udc) 30 ml PO Q6H PRN PRN PRN Reason: Gastric Burning Apixaban (Apixaban 5 Mg Tablet) 5 mg PO BID [facility] Last Admin: 09/14/20 09:01 Dose: 5 mg Documented by: Atenolol (Atenolol 50 Mg Tablet) 50 mg PO BID [facility] Last Admin: 09/14/20 09:02 Dose: Not Given Documented by: Atorvastatin Calcium (Atorvastatin Calcium 10 Mg Tablet) 10 mg PO QHS [facility] Last Admin: 09/13/20 22:01 Dose: 10 mg Documented by: Furosemide (Furosemide 40 Mg/4 Ml Vial) 40 mg IV BID@1000,1800 [facility] Last Admin: 09/14/20 09:01 Dose: 40 mg Documented by: Sodium Chloride () 250 mls @ 15 mls/hr IV .[id number] PRN PRN Reason: Saline Flush Sodium Chloride () 250 mls @ 15 mls/hr IV .[id number] PRN PRN Reason: Additional IVPB Infusion Levothyroxine Sodium (Levothyroxine 25 Mcg Tablet) 12.5 mcg PO DAILY@0600 [facility] Last Admin: 09/14/20 06:17 Dose: 12.5 mcg Documented by: Lisinopril (Lisinopril 20 Mg Tablet) 20 mg PO DAILY [facility] Last Admin: 09/14/20 09:02 Dose: Not Given Documented by: Multivitamins/Minerals (Multivitamins,Ther W-Minerals Tablet) 1 tablet PO DA EZEQUIEL@0800 [facility] Last Admin: 09/14/20 09:01 Dose: 1 tablet Documented by: Nitroglycerin (Nitroglycerin (Inpatient Use) 0.4 Mg Tab.Subl) 0.4 mg SL Q5M PRN PRN Reason: CARDIAC/CHEST PAIN Sodium Chloride (0.9% Saline Lock 10 Ml Syringe) 10 - 40 ml IV UD PRN PRN Reason: SALINE FLUSH Last Admin: 09/12/20 17:37 Dose: 10 ml Documented by: Vitamin E (Vitamin E 400 Units Capsule) 400 units PO DAILYCM [facility] Last Admin: 09/14/20 09:01 Dose: 400 units Documented by: STROKE Vital Signs/Narrative: Vital Signs Temp Pulse Resp BP Pulse Ox 09/14/20 08:55 98.3 F 76 16 104/58 L 95 Medical Necessity - Tobacco Use Smoking Status: Never smoker Tobacco Use: Non-smoker Assessment/Plan All Active Problems Hypoxia (Acute) Chest pain (Acute) Elevated troponin (Acute) CAD (coronary artery disease) (Acute) Bilateral carotid artery stenosis (Acute) Hyperlipidemia (Acute) 1. Acute chest pain/CAD status post CABG and stents/acute on chronic systolic CHF/valvular heart disease/paroxysmal A. fib/HTN/HLD -MR has now become severe, his EF is 28% -BNP on admission is 659.7, continue with Lasix twice daily, continue to monitor creatinine which has improved today -He has had a 5 vessel CABG in the past as well as a heart stent up at [facility] -Cardiology would like to confer with the patient's design technology professor about intervention and possibly consider transfer on Tuesday for evaluation and intervention -Palpitations have resolved as has his requirement for oxygen today. -Continue with his Eliquis, atenolol, benazepril, Lipitor 2. Hypothyroidism -TSH is 7.36 with a low T3 and a normal T4 -Continue with Synthroid at 12.5 mcg daily DVT: Eliqusylvester OBSV E&M: [id number] Subsequent observation care L2
[2020-09-14] MEDS: 0.9% Saline Lock 10 ML Syringe IV (22:11)
[2020-09-14] MEDS: Atenolol 50 MG Tablet PO (22:11)
[2020-09-14] MEDS: Atorvastatin Calcium 10 MG Tablet PO (22:11)
[2020-09-15] VITALS (7 sets, daily range): BP systolic 102–125; BP diastolic 55–68; PULSE 72–78; RESP 12–16; TEMP 36.6–36.8; O2SAT 91–100
[2020-09-15 05:30] LABS: Absolute Lymphocyte Count 1.33 X10^3/uL (0.83-4.51); Absolute Neutrophil Count 6.1 X10^3/uL (2.0-7.7); Basophil# 0.05 X10^3/uL; Basophil% 0.6 % (0-1); Eosinophil# 0.31 X10^3/uL; Eosinophils% 3.6 % (0-5); Hematocrit 40.9 % (40-54); Hemoglobin 13.7 g/dL (13.0-16.5); Lymphocyte # 1.33 X10^3/ul (0.83-4.51); Lymphocyte % 15.4 % (19-41); Mean Corp Hgb Conc 33.5 g/dL (32-36); Mean Corpuscular Hgb 30.2 pg (27.0-32.0); Mean Corpuscular Volume 90.1 fL (80-94); Mean Platelet Vol. 9.1 fl (6.2-12.0); Monocyte# 0.83 X10^3/uL; Monocyte% 9.6 % (0-10); NRBC Flagged by Analyzer 0 % (0-5); Neutrophil # 6.07 X10^3/uL (2.7-7.7); Neutrophil % 70.5 % (47-70); Platelet Count 249 K/mm3 (150-450); RBC Distribution Width CV 12.8 % (11.6-14.6); RBC Distribution Width SD 42.5 fl (35.1-43.9); Red Blood Count 4.54 M/mm3 (4.6-6.2); White Blood Count 8.6 K/mm3 (4.4-11.0)
[2020-09-15] MEDS: Levothyroxine 25 MCG TABLET 12.5 MCG PO (05:42)
[2020-09-15 05:55] LABS: Anion Gap 7 (5-15); BUN 30 mg/dL (7-18); BUN/Creat Ratio 26.5 RATIO (10-20); Calcium,Total 8.5 mg/dL (8.5-10.1); Chloride 100 mmol/L (98-107); Creatinine, Serum 1.13 mg/dL (0.70-1.30); EST Glomerular Filtration Rate 67 mL/min (>60); Est Glom Filt Rate - Afr Amer 80 mL/min (>60); Estimated Creatinine Clearance 49.56 ml/min; Glucose 113 mg/dL (74-106); Potassium 3.6 mmol/L (3.5-5.1); Sodium Level 136 mmol/L (136-145)
[2020-09-15] MEDS: Vitamin E 400 UNITS Capsule PO (08:39)
[2020-09-15] MEDS: Atenolol 50 MG Tablet PO (08:39)
[2020-09-15] MEDS: Multivitamins,Ther W-Minerals Tablet 1 TABLET PO (08:39)
[2020-09-15] MEDS: Lisinopril 20 MG Tablet PO (08:39)
[2020-09-15] MEDS: Furosemide 40 MG/4 ML Vial IV (08:40)
[2020-09-15] MEDS: APIXABAN 5 MG TABLET PO (08:40)
[2020-09-15] MEDS: 0.9% Saline Lock 10 ML Syringe IV (08:42)
--- NOTE | 2020-09-15 09:50 | CASEMGMT ---
According to [facility] website, the following are in-network tertiary facilities: [facility], [place], [facility], [facility], [facility], [facility], and . [facility]NC[facility] CM
--- NOTE | 2020-09-15 11:11 | PHA.DC.MR ---
Pharmacy Service has performed discharge medication reconciliation for this patient. The patient's discharge medication list was reviewed for discrepancies and discrepancies were resolved. Home Medications Apixaban [Eliquis] 5 mg PO BID 09/12/20 Atenolol [Tenormin (Beta Ralph)] 50 mg PO BID 09/12/20 Benazepril HCl 20 mg PO DAILY 09/12/20 Furosemide 20 mg PO DAILY 09/12/20 Multivit-Min/FA/Lycopen/Lutein [Centrum Silver Men Tablet] 1 each PO DAILY 09/12/20 Nitroglycerin 0.4 mg SL Q5M PRN 09/12/20 Simvastatin [Zocor] 20 mg PO QHS 09/12/20 Vitamin E 400 unit PO QODAY 09/12/20
--- NOTE | 2020-09-15 11:23 | DCINST_ITS ---
- Discharge Diagnoses Current Active Problems: Current Active and Chronic Problems Hypoxia (Acute) Chest pain (Acute) Elevated troponin (Acute) Hypertension (Chronic) CAD (coronary artery disease) (Acute) Bilateral carotid artery stenosis (Acute) Hyperlipidemia (Acute) History of coronary artery bypass graft (Chronic) History of [place] (myocardial infarction) (Chronic) Paroxysmal A-fib (Chronic) You will use the following diet at home:: No restrictions Your food should be the consistency of: Regular Your liquids should be the consistency of: Regular/Thin Discharge Activity: Return to Normal Activity Allergies/Adverse Reactions: Allergies No Known Allergies Allergy (Verified 09/12/20 07:21) Medications to take at Discharge Apixaban [Eliquis] 5 mg PO BID 09/12/20 Atenolol [Tenormin (Beta Ralph)] 50 mg PO BID 09/12/20 Benazepril HCl 20 mg PO DAILY 09/12/20 Furosemide 20 mg PO DAILY 09/12/20 Multivit-Min/FA/Lycopen/Lutein [Centrum Silver Men Tablet] 1 each PO DAILY 09/12/20 Nitroglycerin 0.4 mg SL Q5M PRN 09/12/20 Simvastatin [Zocor] 20 mg PO QHS 09/12/20 Vitamin E 400 unit PO QODAY 09/12/20 Primary Care Physician: Betito Taylor MD [Primary Care Provider] - Test Results: Test results from this visit will be discussed in further detail at your follow- up appointment, if applicable.
--- NOTE | 2020-09-15 11:48 | DS.PCM_ITS ---
<Luis Manuel Cuevas - Last Filed: 09/15/20 11:48> Discharge Date and Diagnosis - Problem List Patient Problems: Active and Suspected Problems Hypoxia (Acute) Chest pain (Acute) Elevated troponin (Acute) CAD (coronary artery disease) (Acute) Bilateral carotid artery stenosis (Acute) Hyperlipidemia (Acute) Date of Admission: 09/12/20 Date of Discharge: 09/15/20 - Primary Discharge Diagnosis Acute Problems: Active Problems Hypoxia (Acute) Chest pain (Acute) Elevated troponin (Acute) CAD (coronary artery disease) (Acute) Bilateral carotid artery stenosis (Acute) Hyperlipidemia (Acute) - Secondary Discharge Diagnosis Chronic Problems: Chronic Problems Hypertension (Chronic) History of coronary artery bypass graft (Chronic) History of WA (myocardial infarction) (Chronic) Paroxysmal A-fib (Chronic) Hospital Course and Treatment Imaging Results: Clinical Impression(s) from Imaging Studies Chest X-Ray 09/12/20 07:24 IMPRESSION: Bilateral interstitial opacities which may be due to infection or edema. Clinical correlation is recommended. Cardiomegaly. Status post sternotomy. Electronically Signed: Elvin Balderrama MD at 8:14 EDT Tel , Service support , Echocardiogram 09/12/20 09:49 Interpretation Summary The 3D full volume ejection fraction is EF Calculated 28% %. Severe Global LV Hypokinesia Severe MR ModerateTR Ordering Physician: Arin Yo Referring Physician: Sincere Aj Performed By: Rosemarie Kiran, ADOLFO, RVT Venous Doppler Study 09/12/20 09:51 Interpretation Summary There is no evidence of left lower extremity deep vein thrombosis. Left great saphenous vein appears patent and compressible segmentally. Normal flow patterns right common femoral vein Ordering Physician: Arin Yo Referring Physician: SINCERE AJ Performed By: Soledad Anderson, ADOLFO, RVT Microbiology 09/12/20 08:17 Nasal Secretion SARS-CoV-2 Antigen (Rapid) - Final Procedures: 2-D Echocardiogram Summary of Care Provided: Patient is a 80-year-old male who presented to the ED on 09/12/2020 with a chief complaint of palpitations, diaphoresis, shortness of breath with exertion and o rthopnea. Patient was admitted for atypical chest pain in a patient with a history of CAD status post CABG and acute on chronic systolic heart failure/valvular heart disease. Echocardiogram done on admission revealed mitral regurgitation that has progressed in severity and an ejection fraction of 28%. Cardiology was brought on board and subsequently reached out to patient's longtime assistant manager, Dr. Fierro. Given progressively worsening disease and low ejection fraction, Dr. Fierro agreed to see patient in the system. Transfer initiated and patient will be transferred later on today. 1) Acute chest pain/CAD status post CABG and stents/acute on chronic systolic CHF/valvular heart disease/paroxysmal A. fib/HTN/HLD - BNP on admission is 659.7. - ECHO; MR has now become severe, EF is 28%. - He has had a 5 vessel CABG in the past as well as a heart stent up at [facility]. - Palpitations have resolved and patient is no longer on oxygen. - Transfer to [facility] where he will be managed by Dr. Fierro. 2. Hypothyroidism - TSH is 7.36 with a low T3 and a normal T4 - Continue with Synthroid at 12.5 mcg daily DVT prophylaxis - Eliquis Patient seen by Luis Manuel Cuevas PA-C, under the supervision of Dr. Padilla. Patient Problems: Active and Suspected Problems Hypoxia (Acute) Chest pain (Acute) Elevated troponin (Acute) CAD (coronary artery disease) (Acute) Bilateral carotid artery stenosis (Acute) Hyperlipidemia (Acute) Subjective: Patient is a 80-year-old male comfortably resting in a chair, alert and orient x3. Patient expresses wishes that he wants to be transferred to [facility], either at [place] or [place]. He wants to follow-up with his assistant manager Dr. Fierro who has already agreed to see patient. Patient denies chest pain, shortness of breath, palpitations, fever, chills, N/V/D. Objective: Clinical Impression(s) from Imaging Studies Chest X-Ray 09/12/20 07:24 IMPRESSION: Bilateral interstitial opacities which may be due to infection or edema. Clinical correlation is recommended. Cardiomegaly. Status post sternotomy. Electronically Signed: Elvin Balderrama MD at 8:14 EDT Tel , Service support , Echocardiogram 09/12/20 09:49 Interpretation Summary The 3D full volume ejection fraction is EF Calculated 28% %. Severe Global LV Hypokinesia Severe MR ModerateTR Ordering Physician: Arin Yo Referring Physician: Sincere Aj Performed By: Rosemarie Kiran, ADOLFO, RVT Venous Doppler Study 09/12/20 09:51 Interpretation Summary There is no evidence of left lower extremity deep vein thrombosis. Left great saphenous vein appears patent and compressible segmentally. Normal flow patterns right common femoral vein Ordering Physician: Arin Yo Referring Physician: SINCERE JA Performed By: Soledad Anderson, ADOLFO, RVT - Physical Exam Vitals/I&O's: Vital Signs Temp Pulse Resp BP Pulse Ox 98.2 F 78 16 125/68 H 95 09/15/20 08:37 09/15/20 08:37 09/15/20 08:37 09/15/20 08:37 09/15/20 08:48 Oxygen Flow Rate (L/min) [ 0 AMBULATING on Room Air] Oxygen Flow Rate (L/min) [At 0 REST on Room Air] Oxygen Flow Rate (L/min) 2 Oxygen Delivery Method Room Air Weight: 163 lb 9.328 oz Body Mass Index (BMI) 28.2 Intake and Output for Last 24 Hours 09/13/20 09/14/20 09/15/20 23:59 23:59 23:59 Intake Total 240 / 240 100 / 100 Output Total 1775 / 2825 5325 / 5325 375 / 375 Balance -1775 / -2825 -5085 / -5085 -275 / -275 General: Alert, Oriented x3, Cooperative HEENT: Atraumatic, PERRLA, EOMI, Normocephalic Neck: Supple, No JVD, Negative Carotid Bruits Lungs: Clear to auscultation, Normal air movement Cardiovascular: Regular rate, No murmurs Abdomen: Bowel Sounds Present, Soft, Non Tender Extremities: No edema, Capillary Refill Less than 3 Seconds Skin: No rashes, No breakdown Musculoskeletal: No Tenderness to Palpation of Joints or Extremities Neurological: Cranial nerves II-XII grossly intact Microbiology Past 72 Hours 09/12/20 08:17 Nasal Secretion SARS-CoV-2 Antigen (Rapid) - Final Laboratory Results 09/15/20 05:00: WBC 8.6, RBC 4.54 L, Hgb 13.7, Hct 40.9, MCV 90.1, MCH 30.2, MCHC 33.5, RDW Std Deviation 42.5, RDW Coeff of Constantino 12.8, Plt Count 249, MPV 9.1, Immature Gran % (Auto) 0.300, Neut % (Auto) 70.5 H, Lymph % (Auto) 15.4 L, [place] % (Auto) 9.6, Eos % (Auto) 3.6, Baso % (Auto) 0.6, Absolute Neuts (auto) 6.1, Absolute Lymphs (auto) 1.33, Nucleated RBC % 0 09/15/20 05:00: Sodium 136, Potassium 3.6, Chloride 100, Carbon Dioxide 29.0, Anion Gap 7, BUN 30 H, Creatinine 1.13, Estim Creat Clear Calc 49.56, Est GFR (MDRD) Af Amer 80, Est GFR (MDRD) Non-Af 67, BUN/Creatinine Ratio 26.5 H, Glucose 113 H, Calcium 8.5 Current Medications Acetaminophen (Acetaminophen 325 Mg Tablet) 650 mg PO Q6H PRN PRN PRN Reason: Pain Score 1-10/Temp > 100.7 F Al Hydroxide/Mg Hydroxide (Mag Hydrox/Al Hydrox/Simeth 30 Ml Udc) 30 ml PO Q6H PRN PRN PRN Reason: Gastric Burning Apixaban (Apixaban 5 Mg Tablet) 5 mg PO BID [facility] Last Admin: 09/15/20 08:40 Dose: 5 mg Documented by: Atenolol (Atenolol 50 Mg Tablet) 50 mg PO BID [facility] Last Admin: 09/15/20 08:39 Dose: 50 mg Documented by: Atorvastatin Calcium (Atorvastatin Calcium 10 Mg Tablet) 10 mg PO QHS [facility] Last Admin: 09/14/20 22:11 Dose: 10 mg Documented by: Furosemide (Furosemide 40 Mg/4 Ml Vial) 40 mg IV BID@1000,1800 [facility] Last Admin: 09/15/20 08:40 Dose: 40 mg Documented by: Sodium Chloride () 250 mls @ 15 mls/hr IV .[id number] PRN PRN Reason: Saline Flush Sodium Chloride () 250 mls @ 15 mls/hr IV .[id number] PRN PRN Reason: Additional IVPB Infusion Levothyroxine Sodium (Levothyroxine 25 Mcg Tablet) 12.5 mcg PO DAILY@0600 [facility] Last Admin: 09/15/20 05:42 Dose: 12.5 mcg Documented by: Lisinopril (Lisinopril 20 Mg Tablet) 20 mg PO DAILY [facility] Last Admin: 09/15/20 08:39 Dose: 20 mg Documented by: Multivitamins/Minerals (Multivitamins,Ther W-Minerals Tablet) 1 tablet PO DAILY@0800 [facility] Last Admin: 09/15/20 08:39 Dose: 1 tablet Documented by: Nitroglycerin (Nitroglycerin (Inpatient Use) 0.4 Mg Tab.Subl) 0.4 mg SL Q5M PRN PRN Reason: CARDIAC/CHEST PAIN Sodium Chloride (0.9% Saline Lock 10 Ml Syringe) 10 - 40 ml IV UD PRN PRN Reason: SALINE FLUSH Last Admin: 09/15/20 08:42 Dose: 10 ml Documented by: Vitamin E (Vitamin [facility] 400 Units [facility]apsule) [facility] Admin: 09/15/20 08:39 Dose: 400 units Documented by: Discharge Diet: No Restrictions Discharge Activity: Return to Normal Activity Home Medications: Medications to take at Discharge Apixaban [Eliquis] 5 mg PO BID 09/12/20 Atenolol [Tenormin (Beta Ralph)] 50 mg PO BID 09/12/20 Benazepril HCl 20 mg PO DAILY 09/12/20 Furosemide 20 mg PO DAILY 09/12/20 Multivit-Min/FA/Lycopen/Lutein [Centrum Silver Men Tablet] 1 each PO DAILY 09/12/20 Nitroglycerin 0.4 mg SL Q5M PRN 09/12/20 Simvastatin [Zocor] 20 mg PO QHS 09/12/20 Vitamin E 400 unit PO QODAY 09/12/20 Primary Care Physician: Betito Aj MD [Primary Care Provider] - Disposition: Acute care Hospital Minutes spent on discharge:: 35 Patient Condition:: Stable Medical Necessity - Tobacco Use Smoking Status: Never smoker Tobacco Use: Non-smoker Meaningful Use Info Meaningful Use Diagnoses (Choose all that apply): CHF - CHF HAILEE/ARB ordered at discharge?: Yes Documented LVEF (%): 28 <Romero Padilla - Last Filed: 09/15/20 12:24> Discharge Date and Diagnosis - Primary Discharge Diagnosis Acute Problems: Active Problems Hypoxia (Acute) Chest pain (Acute) Elevated troponin (Acute) CAD (coronary artery disease) (Acute) Bilateral carotid artery stenosis (Acute) Hyperlipidemia (Acute) - Secondary Discharge Diagnosis Chronic Problems: Chronic Problems Hypertension (Chronic) History of coronary artery bypass graft (Chronic) History of WA (myocardial infarction) (Chronic) Paroxysmal A-fib (Chronic) Hospital Course and Treatment Summary of Care Provided: This patient was seen in conjunction with Luis Manuel Cuevas PA-C. I have independently interviewed and examined the patient and reviewed pertinent historical, laboratory, and other data. Please refer to Luis Manuel Cuevas PA-C's note for details of this patient's presentation, findings, and recommendations. I have reviewed Luis Manuel Cuevas PA-C's note and concur with documented findings. In brief, patient is 60-year-old gentleman with significant past cardiac history including CAD status post CABG with subsequent stent placement, acute on chronic systolic heart failure valvular heart disease paroxysmal A. fib dyslipidemia essential hypertension admitted with chest pain. Patient was admitted to monitored bed WA was ruled out with serial cardiac enzymes. Consultation was placed to cardiology cardiology recommended for patient to be transferred to the ED which is stable to be managed by his primary assistant manager. Hospital course: As documented above - Physical Exam Vitals/I&O's: Vital Signs Temp Pulse Resp BP Pulse Ox 98.2 F 78 16 125/68 H 95 09/15/20 08:37 09/15/20 08:37 09/15/20 08:37 09/15/20 08:37 09/15/20 08:48 Oxygen Flow Rate (L/min) [ 0 AMBULATING on Room Air] Oxygen Flow Rate (L/min) [At 0 REST on Room Air] Oxygen Flow Rate (L/min) 2 Oxygen Delivery Method Room Air Weight: 74.2 kg Body Mass Index (BMI) 28.2 Intake and Output for Last 24 Hours 09/13/20 09/14/20 09/15/20 23:59 23:59 23:59 Intake Total 240 / 240 360 / 360 Output Total 1775 / 2825 5325 / 5325 1100 / 1100 Balance -1775 / -2825 -5085 / -5085 -740 / -740 Microbiology Past 72 Hours 04/16/21 08:17 Nasal Secretion SARS-CoV-2 Antigen (Rapid) - Final Laboratory Results 09/15/20 05:00: WBC 8.6, RBC 4.54 L, Hgb 13.7, Hct 40.9, MCV 90.1, MCH 30.2, MCHC 33.5, RDW Std Deviation 42.5, RDW Coeff of Constantino 12.8, Plt Count 249, MPV 9.1, Immature Gran % (Auto) 0.300, Neut % (Auto) 70.5 H, Lymph % (Auto) 15.4 L, Sussex % (Auto) 9.6, Eos % (Auto) 3.6, Baso % (Auto) 0.6, Absolute Neuts (auto) 6.1, Absolute Lymphs (auto) 1.33, Nucleated RBC % 0 09/15/20 05:00: Sodium 136, Potassium 3.6, Chloride 100, Carbon Dioxide 29.0, Anion Gap 7, BUN 30 H, Creatinine 1.13, Estim Creat Clear Calc 49.56, Est GFR ( MDRD) Af Amer 80, Est GFR (MDRD) Non-Af 67, BUN/Creatinine Ratio 26.5 H, Glucose 113 H, Calcium 8.5 Current Medications Acetaminophen (Acetaminophen 325 Mg Tablet) 650 mg PO Q6H PRN PRN PRN Reason: Pain Score 1-10/Temp > 100.7 F Al Hydroxide/Mg Hydroxide (Mag Hydrox/Al Hydrox/Simeth 30 Ml Udc) 30 ml PO Q6H PRN PRN PRN Reason: Gastric Burning Apixaban (Apixaban 5 Mg Tablet) 5 mg PO BID [facility] Last Admin: 09/15/20 08:40 Dose: 5 mg Documented by: Atenolol (Atenolol 50 Mg Tablet) 50 mg PO BID [facility] Last Admin: 09/15/20 08:39 Dose: 50 mg Documented by: Atorvastatin Calcium (Atorvastatin Calcium 10 Mg Tablet) 10 mg PO QHS [facility] Last Admin: 09/14/20 22:11 Dose: 10 mg Documented by: Furosemide (Furosemide 40 Mg/4 Ml Vial) 40 mg IV BID@1000,1800 [facility] Last Admin: 09/15/20 08:40 Dose: 40 mg Documented by: Sodium Chloride () 250 mls @ 15 mls/hr IV .[id number] PRN PRN Reason: Saline Flush Sodium Chloride () 250 mls @ 15 mls/hr IV .[id number] PRN PRN Reason: Additional IVPB Infusion Levothyroxine Sodium (Levothyroxine 25 Mcg Tablet) 12.5 mcg PO DAILY@0600 [facility] Last Admin: 09/15/20 05:42 Dose: 12.5 mcg Documented by: Lisinopril (Lisinopril 20 Mg Tablet) 20 mg PO DAILY [facility] Last Admin: 09/15/20 08:39 Dose: 20 mg Documented by: Multivitamins/Minerals (Multivitamins,Ther W-Minerals Tablet) 1 tablet PO DAILY@0800 [facility] Last Admin: 09/15/20 08:39 Dose: 1 tablet Documented by: Nitroglycerin (Nitroglycerin (Inpatient Use) 0.4 Mg Tab.Subl) 0.4 mg SL Q5M PRN PRN Reason: CARDIAC/CHEST PAIN Sodium Chloride (0.9% Saline Lock 10 Ml Syringe) 10 - 40 ml IV UD PRN PRN Reason: SALINE FLUSH Last Admin: 09/15/20 08:42 Dose: 10 ml Documented by: Vitamin E (Vitamin [facility] 400 Units Capsule) [facility] Last Admin: 09/15/20 08:39 Dose: 400 units Documented by: OBSV E&M: [id number] Observation care discharge
--- NOTE | 2020-09-15 12:11 | CASEMGMT ---
As per initial bottle dealer, pt does have LW/POA forms and will bring them in. He had stated Kimi Sepulveda is medical POA. HARRIET Tripathi
--- NOTE | 2020-09-15 13:50 | NURSING ---
Report called to ZARIA Barajas at [facility].
--- NOTE | 2020-09-15 13:56 | CHAPLAIN ---
Type of Pastoral Visit _x__ Initial Visit ___ Follow-up Visit ___ On-call Visit ___ General Patient Visit ___ Spiritual Assessment ___ Family Conference ___ Bereavement ___ Rapid Response ___ Code Blue ___ Other (describe below) Pastoral Care Referral From _x__ Patient ___ Family ___ Nurse ___ Physician ___ Geophysical Prospecting Permit Agent ___ Rehab Director Occupational Therapist ___ Other (describe below) Sacrament/Intervention _x__ Active listening ___ Anointing ___ Mormon ___ Bereavement ___ Communion ___ Jillian exploration ___ ___ Life review ___ Prayer ___ Reconciliation ___ Sacrament of Sick _x__ Supportive presence ___ Wedding ___ Other (describe below) Pastoral Comments
== END 2020-09-15 14:50 | disposition short-term general hospital (02) | DRG 292 ==
LOC: ED 09:18 → PCU 09:41
PROVIDERS: Family Medicine; Admitting Provider Internal Medicine; Emergency Provider Emergency Medicine; PCP Family Medicine; Visit Provider Internal Medicine
DX: I11.0 Hypertensive heart disease with heart failure (principal); I48.20 Chronic atrial fibrillation, unspecified; R00.2 Palpitations; I50.23 Acute on chronic systolic (congestive) heart failure; R09.02 Hypoxemia; I25.10 Atherosclerotic heart disease of native coronary artery without angina pectoris; E78.5 Hyperlipidemia, unspecified; I48.0 Paroxysmal atrial fibrillation; E03.9 Hypothyroidism, unspecified; Z95.5 Presence of coronary angioplasty implant and graft; Z95.1 Presence of aortocoronary bypass graft; Z79.890 Hormone replacement therapy; Z79.01 Long term (current) use of anticoagulants; I25.2 Old myocardial infarction; Z66 Do not resuscitate; I08.1 Rheumatic disorders of both mitral and tricuspid valves; I65.23 Occlusion and stenosis of bilateral carotid arteries
CPT/HCPCS: 36415; 71045; 80048; 80053; 80061; 80076; 83690; 83880; 84439; 84443; 84481; 84484; 85025; 85610; 85730; 87426; 93005; 93306; 93971; 97802; 99285; Q9957; A4216; J1940

== ENCOUNTER 2020-12-17 07:55 | Emergency (ER) | payer MEDICARE, SELFPAY ==
[2020-09-12 09:56] VITALS: BMI 28.2
[2020-12-17] VITALS (9 sets, daily range): BP systolic 99–128; BP diastolic 75–99; PULSE 63–159; RESP 16–18; TEMP 37; O2SAT 98–100; BMI 27.4
--- NOTE | 2020-12-17 08:00 | EKG12_ITS ---
Test Reason : REPEAT Blood Pressure : / mmHG Vent. Rate : 066 BPM Atrial Rate : 066 BPM P-R Int : 126 ms QRS Dur : 136 ms QT Int : 474 ms P-R-T Axes : 037 003 078 degrees QTc Int : 496 ms Atrial-sensed ventricular-paced rhythm Abnormal ECG Confirmed by SANTIAGO ISAACS, BRUNA ([id number]), restaurant expeditor JAZLYN DAO ([id number]) on 12/19/2020 10:04:58 AM Referred By: JORGE Confirmed By:BRUNA HENDERSON MD
--- NOTE | 2020-12-17 08:01 | EX.ED.DYSGE1 ---
HPI History of Present Illness Chief Complaint: Palpitations Narrative Narrative: 80-year-old male with history of hyperlipidemia, [place], CABG x5, paroxysmal A. fib, CAD presenting with sensation of palpitations. He notes that a couple of days ago he felt dizzy and lightheaded and noted a buzzing from his pacemaker. He states he did not get shocked however. He states that last night about 10 PM while showering he felt dizzy and lightheaded again and felt a similar buzz from his pacemaker. Again he states he was not shocked. This morning he awakened with a sensation of palpitations. He denies chest pain. He does have some dyspnea on exertion this morning. He denies leg swelling. Patient anticoagulated with Eliquis for history of A. fib. [facility] Medical History Atrial fibrillation Coronary artery disease Hyperlipemia Hypertension ICD (implantable cardioverter-defibrillator) in place Myocardial infarct Pacemaker Home Medications apixaban 5 mg PO BID 09/12/20 [History Last Taken 09/11/20] atenolol 25 mg PO BID 09/12/20 [History Last Taken 09/11/20] benazepril 20 mg PO DAILY 09/12/20 [History Last Taken 09/11/20] nitroglycerin 0.4 mg SL Q5M PRN 09/12/20 [History Last Taken Unknown] simvastatin 20 mg PO QHS 09/12/20 [History Last Taken 09/11/20] vitamin E 400 unit PO QODAY 09/12/20 [History Last Taken 09/11/20] amlodipine 5 mg PO DAILY 12/17/20 [History Last Taken Unknown] aspirin 81 mg PO DAILY 12/17/20 [History Last Taken Unknown] epinephrine [Epi E-Z Pen] 0.3 mg IM Q10M PRN 12/17/20 [History Last Taken Unknown] furosemide 20 mg PO DAILY 12/17/20 [History Last Taken Unknown] levothyroxine 25 mcg PO DAILY 12/17/20 [History Last Taken Unknown] [id number] [Centrum Silver] 1 tab PO DAILY 12/17/20 [History Last Taken Unknown] Allergy/AdvReac Type Severity Reaction Status Date / Time No Known Allergies Allergy Verified 12/17/20 07:58 Surgical History Hx of CABG Social History Smoking Status: Never smoker ROS ROS ED Constitutional Constitutional ED: Denies chills or fever(s) Eyes Eyes: Denies blurry vision or diplopia ENT ENT ED: Denies rhinorrhea or sore throat Cardiovascular Cardiovascular: Reports palpitations and racing heartbeat; Denies chest pain Respiratory/Chest Respiratory/Chest: Reports dyspnea on exertion; Denies cough or sputum Gastrointestinal Gastrointestinal: Denies abdominal pain, nausea or vomiting Genitourinary Genitourinary ED: Denies dysuria or hematuria Musculoskeletal Musculoskeletal: Denies arthralgias or myalgias Integumentary Denies Abrasions or rash Neurologic Neurologic: Denies headache(s) or paresthesias Psychiatric Psychiatric: Denies anxiety or depression EXAM Physical Exam Const Vital Signs: 12/17/20 07:56 12/17/20 08:07 12/17/20 08:30 Temperature 98.6 F Temperature Source Oral Pulse Rate 159 H 134 H Respiratory Rate 17 17 Respiratory Effort Normal Non-Labored Respiratory Pattern Normal Blood Pressure 119/81 H 99/75 Blood Pressure Mean 93 83 Pulse Ox 98 99 100 Oxygen Delivery Method Room Air Room Air Room Air 12/17/20 09:10 12/17/20 10:13 12/17/20 10:24 Temperature Temperature Source Pulse Rate 145 H 145 H 117 H Respiratory Rate 17 18 17 Respiratory Effort Respiratory Pattern Blood Pressure 119/83 H 128/89 H 111/75 Blood Pressure Mean 95 102 87 Pulse Ox 99 99 98 Oxygen Delivery Method Room Air 12/17/20 10:39 Temperature Temperature Source Pulse Rate 71 Respiratory Rate 17 Respiratory Effort Respiratory Pattern Blood Pressure 109/81 H Blood Pressure Mean 90 Pulse Ox 98 Oxygen Delivery Method Room Air HEENT Denies moist mucous membranes Negative for trauma Eyes PERRL and EOMs intact bilaterally Chest Wall inspection of chest normal and palpation of chest normal Resp normal respiratory effort and clear to auscultation bilaterally Cardio Rate: tachycardic Rhythm: abnormal rhythm irregularly irregular GI normal to inspection, nondistended, normoactive bowel sounds Extremity normal to inspection General Extremety ED: Negative for edema General Extremity: Negative for edema Neuro oriented x3 and CN's II-XII intact bilaterally Sensorium / Orientation: alert Psych mental status grossly normal Skin no rashes or lesions noted and no wounds MDM MDM MDM Narrative Medical decision making narrative: Patient with extensive cardiac history presenting for evaluation of palpitations. EKG performed on arrival shows atrial fibrillation with RVR at 154 bpm on my interpretation. Patient denies any chest pain. He does state that his pacemaker defibrillator was buzzing. He denies a shock. Patient will have [employer] pacemaker interrogated and will have cardiac work-up. Patient given Cardizem 20 mg IV. After getting the medication patient's heart rate went down to 129 and then rebounded back to its original rate. I was able to interpret his [employer] pacemaker and it does appear that he has had some nonsustained V. tach as well as one episode of prolonged V. tach that were not treated by shock. It does appear that the battery life on his pacemaker defibrillator is low. I discussed with the Dr. Owens who recommended doing an amiodarone bolus and drip. This was started and patient's rhythm did respond. His repeat EKG shows an atrial sensed ventricular paced rhythm at 66 beats per minute on my interpretation. This was discussed with cardiology at [facility]. This was also discussed with the ICU resident, and cardiology nurse. Patient remained stable on the amiodarone drip. Patient's lab work shows shows no electrolyte abnormalities. Renal function and is normal. Patient has no leukocytosis and his hemoglobin is stable. His BNP is elevated at 436.7 however his chest x-ray as interpreted by myself shows no acute cardiopulmonary process. The radiologist does agree. This was discussed with Dr. Kay at [facility] who is on-call for his straddle carrier operator Dr. Thorpe he did accept admission. Patient will be admitted to the ICU at [facility]. Patient transferred in stable condition. Impression: 1. A. fib RVR 2. Pacemaker failure Lab Data Labs: Laboratory Results - last 24 hr 12/17/20 12/17/20 12/17/20 08:00 08:00 08:00 WBC 5.9 RBC 4.93 Hgb 14.6 Hct 44.6 MCV 90.5 MCH 29.6 MCHC 32.7 RDW Std Deviation 43.2 RDW Coeff of Constantino 13.0 Plt Count 140 L MPV 9.2 Immature Gran % (Auto) 0.300 Neut % (Auto) 58.1 Lymph % (Auto) 29.7 Hendricks % (Auto) 9.2 Eos % (Auto) 2.0 Baso % (Auto) 0.7 Absolute Neuts (auto) 3.4 Absolute Lymphs (auto) 1.74 Nucleated RBC % 0 Sodium 142 Potassium 3.7 Chloride 106 Carbon Dioxide 29.0 Anion Gap 7 BUN 23 H Creatinine 1.15 Estim Creat Clear Calc 48.70 Est GFR (MDRD) Af Amer 79 Est GFR (MDRD) Non-Af 65 BUN/Creatinine Ratio 20.0 Glucose 114 H Calcium 8.8 Magnesium 2.2 Troponin I High Sens 14.8 B-Natriuretic Peptide 436.7 H Radiography Diagnostic Testing: Radiology Impression Chest X-Ray 12/17/20 08:30 IMPRESSION: Stable mild linear scarring at the left lung base with blunting of the left costophrenic angle. Electronically Signed: Cheikh Richey MD at 8:52 EDT , Service support , Discharge Plan Triage Chief Complaint: Palpitations ED Provider: Rebel Flynn Dx/Rx/DC Orders Prescriptions: No Action simvastatin 20 MG tablet 20 mg PO QHS RF: 0 nitroglycerin 0.4 MG tablet, sublingual 0.4 mg SL Q5M PRN (Reason: Chest Pain) RF: 0 benazepril 20 MG tablet 20 mg PO DAILY RF: 0 atenolol 50 MG tablet 25 mg PO BID RF: 0 vitamin E 400 UNIT capsule 400 unit PO QODAY RF: 0 apixaban 5 MG tablet 5 mg PO BID RF: 0 amlodipine 5 mg Tablet 5 mg PO DAILY RF: 0 aspirin 81 mg Tablet 81 mg PO DAILY RF: 0 furosemide 20 mg Tablet 20 mg PO DAILY RF: 0 epinephrine [Epi E-Z Pen] 0.3 mg/0.3 mL Auto-Injector 0.3 mg IM Q10M PRN (Reason: Allergic Reaction) RF: 0 Centrum Silver Tablet 1 tab PO DAILY RF: 0 levothyroxine 25 mcg Capsule 25 mcg PO DAILY RF: 0 Primary Care Provider: Betito Taylor
--- NOTE | 2020-12-17 08:02 | EKG12_ITS ---
Test Reason : TACHY Blood Pressure : / mmHG Vent. Rate : 154 BPM Atrial Rate : 159 BPM P-R Int : 000 ms QRS Dur : 118 ms QT Int : 330 ms P-R-T Axes : 000 008 127 degrees QTc Int : 528 ms Atrial fibrillation with rapid ventricular response Incomplete left bundle branch block ST & T wave abnormality, consider lateral ischemia vs IVCD Effect Abnormal ECG Confirmed by SANTIAGO ISAACS, BRUNA ([id number]), purchasing expeditor JAZLNY DAO ([id number]) on 12/19/2020 10:08:11 AM Referred By: JORGE Confirmed By:BRUNA HENDERSON MD
[2020-12-17 08:07] LABS: Absolute Lymphocyte Count 1.74 X10^3/uL (0.83-4.51); Absolute Neutrophil Count 3.4 X10^3/uL (2.0-7.7); Basophil# 0.04 X10^3/uL; Basophil% 0.7 % (0-1); Eosinophil# 0.12 X10^3/uL; Hematocrit 44.6 % (40-54); Hemoglobin 14.6 g/dL (13.0-16.5); Lymphocyte # 1.74 X10^3/ul (0.83-4.51); Lymphocyte % 29.7 % (19-41); Mean Corp Hgb Conc 32.7 g/dL (32-36); Mean Corpuscular Hgb 29.6 pg (27.0-32.0); Mean Corpuscular Volume 90.5 fL (80-94); Mean Platelet Vol. 9.2 fl (6.2-12.0); Monocyte# 0.54 X10^3/uL; Monocyte% 9.2 % (0-10); NRBC Flagged by Analyzer 0 % (0-5); Neutrophil % 58.1 % (47-70); Platelet Count 140 K/mm3 (150-450); RBC Distribution Width SD 43.2 fl (35.1-43.9); Red Blood Count 4.93 M/mm3 (4.6-6.2); White Blood Count 5.9 K/mm3 (4.4-11.0)
[2020-12-17] MEDS: dilTIAZem 25 MG/5 ML Vial 20 MG IV BOLUS ×2 (08:11→09:04)
[2020-12-17 08:26] LABS: Anion Gap 7 (5-15); BUN 23 mg/dL (7-18); Calcium,Total 8.8 mg/dL (8.5-10.1); Chloride 106 mmol/L (98-107); Creatinine, Serum 1.15 mg/dL (0.70-1.30); EST Glomerular Filtration Rate 65 mL/min (>60); Est Glom Filt Rate - Afr Amer 79 mL/min (>60); Glucose 114 mg/dL (74-106); Magnesium 2.2 mg/dL (1.6-2.6); Potassium 3.7 mmol/L (3.5-5.1); Sodium Level 142 mmol/L (136-145); Troponin-I HS 14.8 pg/mL (3.0-78.5)
[2020-12-17 08:30] LABS: BNP,B-Type NATRIURETIC PEPTIDE 436.7 pg/mL (0-100)
--- NOTE | 2020-12-17 08:30 | RAD_ITS ---
STUDY: X-RAY CHEST REASON FOR EXAM: Male, 80 years old. 2 day history of palpitations. TECHNIQUE: Single AP portable view of the chest. COMPARISON: Comparison is made with prior study dated 09/12/2020. FINDINGS: EKG electrodes are seen. Hyperinflation. Stable mild increased linear markings at the left lung base suggestive of scarring. Stable blunting of the left costophrenic angle. Sternal cerclage wires and vascular clips are present from a prior sternotomy and coronary artery bypass graft procedure (CABG). A left-sided dual-chamber pacemaker is seen. Normal mediastinum and joel. Normal visualized pulmonary arteries. There is atherosclerotic calcification of the aortic arch with tortuosity. Normal visualized thoracic spine. Normal visualized ribs, clavicles, and shoulders. There is no demonstrated abnormality of the visualized soft tissue structures of the upper abdomen. RAD/Chest 1 View (Portable) IMPRESSION: Stable mild linear scarring at the left lung base with blunting of the left costophrenic angle. Electronically Signed: Cheikh Richey MD at 8:52 EDT , Service support ,
[2020-12-17] MEDS: Amiodarone 360 MG in Dextrose 5% Viaflo Bag 192.8 ML 33.3 MG CONT INF (10:24)
--- NOTE | 2020-12-17 10:39 | NURSING ---
NICKY, NURSE GENERAL DUTY, ANA PATEL
--- NOTE | 2020-12-17 11:10 | NURSING ---
[facility] SICU BED 5 NURSE TO NURSE [phone]
--- NOTE | 2020-12-17 11:25 | NURSING ---
CALLED SQUAD, ETA IS 90 ETA
== END 2020-12-17 13:00 | disposition other institution (70) ==
LOC: ED 08:28
PROVIDERS: Emergency Provider Student in an Organized Health Care Education/Training Program; PCP Family Medicine
DX: R00.2 Palpitations (principal); R06.00 Dyspnea, unspecified; J98.4 Other disorders of lung; I48.91 Unspecified atrial fibrillation; I25.10 Atherosclerotic heart disease of native coronary artery without angina pectoris; E78.5 Hyperlipidemia, unspecified; I10 Essential (primary) hypertension; I44.7 Left bundle-branch block, unspecified; Z79.01 Long term (current) use of anticoagulants; Z79.82 Long term (current) use of aspirin; Z95.0 Presence of cardiac pacemaker; Z79.899 Other long term (current) drug therapy; Z95.1 Presence of aortocoronary bypass graft
CPT/HCPCS: 71045; 80048; 83735; 83880; 84484; 85025; 87426; 93005; 99285; J7040; A4216

== ENCOUNTER → 2021-03-05 08:35 | Outpatient (CLI) | payer MEDICARE, SELFPAY ==
--- NOTE | 2021-03-05 08:37 | ECHOD_ITS ---
Reason For Study: CAD Procedure This was a 2D Doppler, Color Flow transthoracic echocardiogram. Exam performed in department. Left Ventricle Normal LV size. The estimated ejection fraction is 45 %. Diastolic function is indeterminate. No regional wall motion abnormalities noted. Right Ventricle Normal RV size. ICD or pacer leads identified within the right ventricle. Normal systolic function. Atria The left atrium is moderately enlarged. Normal right atrium. No doppler evidence for ASD. Mitral Valve There is no mitral valve stenosis. Severe (4+) mitral valve insufficiency. Tricuspid Valve There is no tricuspid stenosis. Mild tricuspid valve insufficiency. Pulmonary artery systolic pressure is 40-45 mmHg. Aortic Valve Trisinus/trileaflet aortic valve. There is no aortic stenosis. No aortic valve insufficiency. Pulmonic Valve There is no pulmonic valvular stenosis. No pulmonic valve insufficiency. Great Vessels Normal aortic root. Pericardium/Pleural No pericardial effusion. MMode/2D Measurements & Calculations LVIDd: 6.0 cm IVSd: 1.3 cm Ao root diam: 3.4 cm LVIDs: 4.6 cm LVPWd: 0.74 cm RVDd: 3.3 cm FS: 23.2 % LAV(MOD-bp): 96.5 ml LVAd ap4: 35.8 cm2 LVAd ap2: 42.5 cm2 LAV(MOD-bp) Indexed: 51.4 ml/m2 LVLd ap4: 8.1 cm LVLd ap2: 8.3 cm LAV(MOD-sp2): 86.3 ml EDV(MOD-sp4): 131.5 ml EDV(MOD-sp2): 179.8 ml LAV(MOD-sp4): 102.3 ml EDV(sp4-el): 133.9 ml EDV(sp2-el): 185.4 ml LVAs ap4: 25.3 cm2 LVAs ap2: 30.0 cm2 LVLs ap4: 7.2 cm LVLs ap2: 7.7 cm ESV(MOD-sp4): 77.6 ml ESV(MOD-sp2): 100.2 ml ESV(sp4-el): 75.5 ml ESV(sp2-el): 99.7 ml EF(MOD-sp4): 41.0 % EF(MOD-sp2): 44.2 % EF(sp4-el): 43.6 % SV(MOD-sp4): 53.9 ml SV(MOD-sp2): 79.5 ml SV(sp4-el): 58.4 ml LA dimension(2D): 4.5 cm LA A4 area: 27.5 cm2 RA A4 area: 21.5 cm2 Doppler Measurements & Calculations MV E max beni: 115.5 cm/sec Lat Peak E' Beni: 9.8 cm/sec Med Peak E' Beni: 7.3 cm/sec MV A max beni: 50.8 cm/sec E/E' lat: 11.8 E/E' med: 15.8 MV E/A: 2.3 Ao V2 max: 106.6 cm/sec LV V1 max: 90.5 cm/sec PA V2 max: 86.7 cm/sec Ao max P.5 mmHg LV V1 max P.3 mmHg TR max beni: 291.2 cm/sec TR max P.9 mmHg ECHO/Echo Complete Interpretation Summary The estimated ejection fraction is 45 %. Diastolic function is indeterminate. The left atrium is moderately enlarged. Severe (4+) mitral valve insufficiency. Mild tricuspid valve insufficiency. Pulmonary artery systolic pressure is 40-45 mmHg. Ordering Physician: ANGÉLICA RENE Referring Physician: Sincere Taylor Performed By: Fabienne Metz RDCS
== END ==
PROVIDERS: PCP Family Medicine
DX: I25.10 Atherosclerotic heart disease of native coronary artery without angina pectoris (principal); I34.0 Nonrheumatic mitral (valve) insufficiency
CPT/HCPCS: 93306

== ENCOUNTER 2021-12-26 04:37 | Emergency (ER) | payer MEDICARE, SELFPAY ==
[2021-12-26 04:38] VITALS: BP 126/89; PULSE 105; RESP 28; TEMP 36.2; O2SAT 92; BMI 28.7
--- NOTE | 2021-12-26 04:43 | RAD_ITS ---
STUDY: X-RAY CHEST REASON FOR EXAM: Male, 81 years old. Shortness of breath, orthopnea TECHNIQUE: PA and lateral views of the chest. COMPARISON: 11/17/2020 FINDINGS: Chronically coarsened lung markings. Bilateral Karlos B lines. Small bilateral pleural effusions. Sternal cerclage wires and vascular clips are present from a prior sternotomy and coronary artery bypass graft procedure (CABG). Triple lead cardiac device remains. Normal mediastinum and joel. There is prominence of the pulmonary hilar arteries and peripheral pulmonary arteries, consistent with congestive heart failure (CHF). There is atherosclerotic calcification of the aortic arch with tortuosity. There is no demonstrated abnormality of the visualized soft tissue structures of the upper abdomen. RAD/Chest PA and Lateral IMPRESSION: CHF with pulmonary edema and pleural effusions. Electronically Signed: Thad Grant MD at 5:25 EDT ,
--- NOTE | 2021-12-26 04:43 | EKG12_ITS ---
Test Reason : SOB Blood Pressure : / mmHG Vent. Rate : 098 BPM Atrial Rate : 091 BPM P-R Int : 128 ms QRS Dur : 116 ms QT Int : 412 ms P-R-T Axes : 000 154 138 degrees QTc Int : 525 ms Atrial-sensed ventricular-paced rhythm with occasional Premature ventricular complexes Abnormal ECG Confirmed by TANIA ISAACS, NANCY ([id number]), editor school photograph JAZLYN DAO ([id number]) on 12/29/2021 12:55:21 PM Referred By: BB Confirmed By:NANCY MARIN MD
--- NOTE | 2021-12-26 04:44 | ED.VIS.DYS ---
HPI History of Present Illness Chief Complaint: Shortness of Breath Informant: patient and EMS Onset/Context/Timing Onset: Days (Several) Context: gradual and onset Timing: Continuous Quality: Positive for Dyspnea on exertion and Orthopnea Current Severity: Moderate Maximum Severity: Moderate Worsened by: Exertion and Lying flat Relieved by: Rest Associated Symptoms Negative for cough Chest Pain: Positive for None Narrative Narrative: Patient follows with with regards to his heart. He was seen there 4 days ago and had a medication change as follows: Discontinue atenolol 50 mg and replace it with metoprolol tartrate 25 mg twice daily, cut benazepril in half from 5 mg daily to 2.5 mg daily. His other medications have stayed the same which include furosemide 20 mg twice daily. He states he does urinate after he takes it but he does not always urinate a lot, states it depends on how much he drinks. He denies any fevers, chills, cough, abnormal leg swelling, or chest discomfort. [facility] Medical History (Updated 12/26/21 @ 06:[address] Arcenio Dewitt MD) Atrial fibrillation Bilateral carotid artery stenosis Cardiomyopathy Coronary artery disease Hyperlipemia Hypertension ICD (implantable cardioverter-defibrillator) in place Mitral regurgitation Myocardial infarct Pacemaker Home Medications apixaban 5 mg tablet 5 mg PO BID blood thinner 09/12/20 [History Last Taken 09/11/20] nitroglycerin 0.4 mg sublingual tablet 0.4 mg sublingual Q5M PRN Chest Pain 09/12/20 [History Last Taken Unknown] vitamin E 268 mg (400 unit) capsule 400 unit PO QODAY supplement 09/12/20 [History Last Taken 09/11/20] aspirin 81 mg tablet 81 mg PO DAILY 12/17/20 [History Last Taken Unknown] epinephrine 0.3 mg/0.3 mL injection, auto-injector 0.3 mg IM Q10M PRN Allergic Reaction 12/17/20 [History Last Taken Unknown] levothyroxine 25 mcg capsule 25 mcg PO DAILY 12/17/20 [History Last Taken Unknown] ibzavfimxzsw-huwyrpwm-rfpclw tablet 1 tab PO DAILY 12/17/20 [History Last Taken Unknown] amiodarone 200 mg tablet 200 mg PO DAILY 12/26/21 [History Last Taken Unknown] atorvastatin 20 mg tablet 20 mg PO QHS 12/26/21 [History Last Taken Unknown] benazepril 5 mg tablet 2.5 mg PO DAILY 12/26/21 [History Last Taken Unknown] furosemide 20 mg tablet 20 mg PO BID #60 tabs 12/26/21 [Rx Last Taken Unknown] metoprolol tartrate 25 mg tablet 25 mg PO BID 12/26/21 [History Last Taken Unknown] Allergy/AdvReac Type Severity Reaction Status Date / Time No Known Allergies Allergy Verified 12/26/21 04:44 Surgical History Hx of CABG Social History Smoking Status: Never smoker ROS ROS ED Constitutional Constitutional ED: Denies chills or fever(s) Eyes Eyes: Denies change in vision or diplopia ENT ENT ED: Denies rhinorrhea or sore throat Cardiovascular Cardiovascular: Reports orthopnea and other Details: Chronic left lower extremity edema due to vein harvesting for CABG, no change, no right lower extremity edema ; Denies chest pain, palpitations or racing heartbeat Respiratory/Chest Respiratory/Chest: Reports dyspnea, dyspnea on exertion and orthopnea; Denies cough Gastrointestinal Gastrointestinal: Denies abdominal pain, diarrhea, nausea or vomiting Genitourinary Genitourinary ED: Denies dysuria or hematuria Musculoskeletal Musculoskeletal: Denies back pain or neck pain Integumentary Denies abscess or rash Neurologic Neurologic: Denies headache(s), paresthesias or weakness Psychiatric Psychiatric: Denies anxiety or suicidal thoughts EXAM Physical Exam Const Vital Signs: 12/26/21 04:38 12/26/21 04:46 12/26/21 05:03 Temperature 97.2 F L Temperature Source Temporal Pulse Rate 105 H 106 H Respiratory Rate 28 H 22 H Respiratory Effort Short of Breath Respiratory Depth Normal Respiratory Pattern Normal Tachypnea Blood Pressure 126/89 H Blood Pressure Mean 101 Pulse Ox 92 Oxygen Delivery Method Room Air Room Air 12/26/21 06:03 Temperature Temperature Source Pulse Rate 96 Respiratory Rate 24 H Respiratory Effort Respiratory Depth Respiratory Pattern Blood Pressure 124/83 H Blood Pressure Mean 96 Pulse Ox 95 Oxygen Delivery Method Room Air Positive well nourished and well developed General Appearance ED: well developed and NAD HEENT Reports moist mucous membranes normocephalic and atraumatic Eyes PERRL and EOMs intact bilaterally Neck full ROM and supple Neck Narrative: Mild JVD present Resp normal respiratory effort Resp Narrative: Bibasilar rhonchi and end expiratory wheezes bilaterally symmetrically. Trachea midline. Effort and Inspection: able to speak in complete sentences Cardio regular rate and regular rhythm Cardio Narrative: Harsh decrescendo 3/6 systolic murmur LLSB GI non-tender and non-distended Auscultation: normoactive bowel sounds Palpation: soft Back/Spine no CVA tenderness General Back: other FROM Extremity normal to inspection, full ROM and no calf tenderness Extremity Narrative: Slight pitting edema left lower extremity mid medina General Extremety ED: Negative for edema, pulses abnormal or tenderness General Extremity: Negative for edema or pulses abnormal Neuro oriented x3, CN's II-XII intact bilaterally and no sensory deficits noted Sensorium / Orientation: awake and alert Motor Exam: strength 5/5 throughout Skin no rashes or lesions noted and no wounds MDM MDM MDM Narrative Medical decision making narrative: Clinical exam and work-up is consistent with a CHF exacerbation. He had an echocardiogram a year ago that showed severe mitral regurgitation, which is audible on exam plainly, as well as an ejection fraction of 45%. He confirms that the medication changes that he had 4 days ago were because his blood pressure was on the low side. He was in the 120s throughout his ED visit today, even after Lasix 20 mg IV and an albuterol treatment, both of which did help his dyspnea. Afterwards were ambulated him, he did very well walking all the way around the emergency department with very little dyspnea, almost back to the room his oxygen saturations were at 88% on room air, but he rebounded very quickly in less than 30 seconds, and although he was mildly dyspneic when he got back to the room, he was asymptomatic in a matter of a minute or 2. He developed no angina. I offered admission, however he declines and prefers to go home. He did not urinate a lot after his Lasix 20 mg, and I suspect this is because of his mild CARSON. Given that he prefers to go home, and understands reasons to return, I think it would be reasonable to double his a.m. dose of Lasix to 40 mg, keeping his nighttime dose at 20 mg, for the next 3 or 4 days and then going back to 20 mg twice daily, he has an appointment with his doctor on Tuesday or Tuesday next week, where he could have labs repeated, and then he is scheduled to see his relations liaison within the next week or 2. Lab Data Attestation: I reviewed the patient's lab results. Labs: Laboratory Results - last 24 hr 12/26/21 12/26/21 12/26/21 04:50 04:50 04:50 WBC 9.0 RBC 4.56 L Hgb 13.8 Hct 42.5 MCV 93.2 MCH 30.3 MCHC 32.5 RDW Std Deviation 49.5 H RDW Coeff of Constantino 14.5 Plt Count 185 MPV 9.7 Immature Gran % (Auto) 0.600 Neut % (Auto) 73.1 H Lymph % (Auto) 12.7 L Stanton % (Auto) 11.5 H Eos % (Auto) 1.7 Baso % (Auto) 0.4 Absolute Neuts (auto) 6.6 Absolute Lymphs (auto) 1.15 Nucleated RBC % 0 Sodium 138 Potassium 4.1 Chloride 106 Carbon Dioxide 27.0 Anion Gap 5 BUN 38 H Creatinine 1.84 H Estim Creat Clear Calc 29.94 Est GFR (MDRD) Af Amer 46 L Est GFR (MDRD) Non-Af 38 L BUN/Creatinine Ratio 20.7 H Glucose 148 H Calcium 8.7 Troponin I High Sens 14 B-Natriuretic Peptide 740.9 H Radiography Chest X-Ray - ED: 1 View, Read by ED Physician, Cardiomegaly and CHF Diagnostic Testing: Clinical Impression(s) from Imaging Studies Chest X-Ray 12/26/21 04:43 IMPRESSION: CHF with pulmonary edema and pleural effusions. Electronically Signed: Thad Grant MD at 5:25 EDT , Rhythm Strip Rhythm Strip: paced Rate: 95 Ectopy: None EKG Initial EKG: Attestation: I personally reviewed and interpreted this EKG as follows: Interpretation: Sinus Rhythm, Paced and - (PVC) Discharge Plan Triage Chief Complaint: Shortness of Breath ED Provider: Arcenio Dewitt Dx/Rx/DC Orders Clinical Impression: Acute exacerbation of CHF (congestive heart failure), CARSON (acute kidney injury), Mitral regurgitation Instructions: Acute Kidney Failure Dc, Heart Failure Dc Prescriptions: Continued nitroglycerin 0.4 MG tablet, sublingual 0.4 mg SL Q5M PRN (Reason: Chest Pain) vitamin E 400 UNIT capsule 400 unit PO QODAY apixaban 5 MG tablet 5 mg PO BID aspirin 81 mg Tablet 81 mg PO DAILY epinephrine 0.3 mg/0.3 mL Auto-Injector 0.3 mg IM Q10M PRN (Reason: Allergic Reaction) krcofwernlgt-oxbsjsyx-zrovnx Tablet 1 tab PO DAILY levothyroxine 25 mcg Capsule 25 mcg PO DAILY atorvastatin 20 mg Tablet 20 mg PO QHS metoprolol tartrate 25 mg Tablet 25 mg PO BID benazepril 5 mg Tablet 2.5 mg PO DAILY amiodarone 200 mg Tablet 200 mg PO DAILY furosemide 20 mg Tablet 20 mg PO BID Qty: 60 0RF Rx Instructions: double your AM dose for the next 3 or 4 days (4 if you feel you are still short of breath after doing this for the first 3) Primary Care Provider: Betito Taylor Referrals: Betito Taylor MD [Primary Care Provider] - [facility] appointment Disposition Disposition: Home, Self Care
[2021-12-26] MEDS: Albuterol 2.5 MG/3 ML VIAL.NEB. INHALATION (04:45)
[2021-12-26 04:46] VITALS: O2SAT 94
[2021-12-26 04:58] LABS: Absolute Lymphocyte Count 1.15 X10^3/uL (0.83-4.51); Absolute Neutrophil Count 6.6 X10^3/uL (2.0-7.7); Basophil# 0.04 X10^3/uL; Basophil% 0.4 % (0-1); Eosinophil# 0.15 X10^3/uL; Eosinophils% 1.7 % (0-5); Hematocrit 42.5 % (40-54); Hemoglobin 13.8 g/dL (13.0-16.5); Lymphocyte # 1.15 X10^3/ul (0.83-4.51); Lymphocyte % 12.7 % (19-41); Mean Corp Hgb Conc 32.5 g/dL (32-36); Mean Corpuscular Hgb 30.3 pg (27.0-32.0); Mean Corpuscular Volume 93.2 fL (80-94); Mean Platelet Vol. 9.7 fl (6.2-12.0); Monocyte# 1.04 X10^3/uL; Monocyte% 11.5 % (0-10); NRBC Flagged by Analyzer 0 % (0-5); Neutrophil # 6.61 X10^3/uL (2.7-7.7); Neutrophil % 73.1 % (47-70); Platelet Count 185 K/mm3 (150-450); RBC Distribution Width CV 14.5 % (11.6-14.6); RBC Distribution Width SD 49.5 fl (35.1-43.9); Red Blood Count 4.56 M/mm3 (4.6-6.2)
[2021-12-26] MEDS: Furosemide 20 MG/2 ML VIAL IV (05:02)
[2021-12-26 05:03] VITALS: PULSE 106; RESP 22
[2021-12-26 05:18] LABS: Anion Gap 5 (5-15); BUN 38 mg/dL (7-18); BUN/Creat Ratio 20.7 RATIO (10-20); Calcium,Total 8.7 mg/dL (8.5-10.1); Chloride 106 mmol/L (98-107); Creatinine, Serum 1.84 mg/dL (0.70-1.30); EST Glomerular Filtration Rate 38 mL/min (>60); Est Glom Filt Rate - Afr Amer 46 mL/min (>60); Estimated Creatinine Clearance 29.94 ml/min; Glucose 148 mg/dL (74-106); Potassium 4.1 mmol/L (3.5-5.1); Sodium Level 138 mmol/L (136-145); Troponin-I HS 14 pg/mL (3.0-78.0)
[2021-12-26 05:42] LABS: BNP,B-Type NATRIURETIC PEPTIDE 740.9 pg/mL (0-100)
[2021-12-26 06:03] VITALS: BP 124/83; PULSE 96; RESP 24; O2SAT 95
[2021-12-26 06:07] VITALS: BP 131/84; PULSE 93; RESP 20; O2SAT 94
== END 2021-12-26 06:29 | disposition home or self-care (01) ==
PROVIDERS: Emergency Provider Emergency Medicine; PCP Family Medicine; Visit Provider Emergency Medicine
DX: N17.9 Acute kidney failure, unspecified (principal); I11.0 Hypertensive heart disease with heart failure; I50.9 Heart failure, unspecified; I42.9 Cardiomyopathy, unspecified; I48.91 Unspecified atrial fibrillation; I34.0 Nonrheumatic mitral (valve) insufficiency; I25.10 Atherosclerotic heart disease of native coronary artery without angina pectoris; E78.5 Hyperlipidemia, unspecified; I25.2 Old myocardial infarction; Z79.82 Long term (current) use of aspirin; Z79.899 Other long term (current) drug therapy; Z95.0 Presence of cardiac pacemaker
CPT/HCPCS: 71046; 80048; 83880; 84484; 85025; 93005; 94640; 96374; 99285; A4216; J1940

== ENCOUNTER → 2022-07-21 | Outpatient (CLI) | payer MEDICARE, SELFPAY ==
--- NOTE | 2022-07-21 09:30 | CR.HP_ITS ---
CR - History & Physical - General Arrival date:: 07/21/22 Arrival time:: 09:30 Date of Referral:: 07/08/22 Date of CR Evaluation:: 07/21/22 - delayed due to getting information from [facility] Referring Physician: Dr. Zulay Bell Primary Diagnosis: Chronic Systolic HF, Valve Replacement, CABG - History of Present Cardiac Event Onset Date: Enter Onset Date of cardiac illnesses in Comment field below Coronary Artery Bypass Graft:: Yes - 1994 Vessel: MONAE and MATEUSZ grafts to second diagonal, first diagonal adn mid LAD Heart valve replacement or repair:: Yes - Mitral Valve Clip June 10, 2022 PTCA or coronary stenting:: Yes - 1999 Heart Failure EF <35%:: Yes - Left ventricular systolic function 25-30%, NYHA CLass III - Sleep Disorder Evaluation Hx of Sleep Apnea: No Do you snore loudly (louder than talking or can be heard through closed doors)?: No Do you often feel tired/ fatigued/ sleepy during daytime?: No Has anyone observed you stop breathing during sleep?: No History of Hypertension (for STOP score): Yes STOP Results: Negative - Medications Home Medications: Ambulatory Orders Medication Instructions Recorded apixaban 5 mg tablet 5 mg PO BID blood thinner 09/12/20 nitroglycerin 0.4 mg sublingual 0.4 mg sublingual Q5M PRN Chest 09/12/20 tablet Pain vitamin E 268 mg (400 unit) capsule 400 unit PO QODAY supplement 09/12/20 aspirin 81 mg tablet 81 mg PO DAILY 12/17/20 epinephrine 0.3 mg/0.3 mL 0.3 mg IM Q10M PRN Allergic 12/17/20 injection, auto-injector Reaction levothyroxine 25 mcg capsule 25 mcg PO DAILY 12/17/20 pcymykjxqlhw-pumwvvjz-boocjl tablet 1 tab PO DAILY 12/17/20 amiodarone 200 mg tablet 200 mg PO DAILY 12/26/21 atorvastatin 20 mg tablet 20 mg PO QHS 12/26/21 benazepril 5 mg tablet 2.5 mg PO DAILY 12/26/21 furosemide 20 mg tablet 20 mg PO BID #60 tabs 12/26/21 metoprolol tartrate 25 mg tablet 25 mg PO BID 12/26/21 amiodarone 200 mg tablet (Pacerone) 200 mg PO DAILY 07/21/22 atorvastatin 20 mg tablet 20 mg PO DAILY 07/21/22 empagliflozin 25 mg tablet 25 mg PO DAILY 07/21/22 (Jardiance) torsemide 60 mg tablet 50 mg PO DAILY 07/21/22 - Allergies Allergies/Adverse Reactions: Allergies No Known Allergies Allergy (Verified 12/26/21 04:44) Advanced Directives - Advanced Directives 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 of 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: Yes Living Will: Yes Advance Directives Information Provided: No Advance Directives on File: Yes - Patient believes they should be on file DNR Order?:: No - MOLST See MOLST form: No Past Medical History - Covid-19 Screening Fever: No Unexplained muscle aches: No Current respiratory symptoms: No Upper respiratory infections symptoms: No Gastro-intestinal symptoms: No Nvt-Pysn-Iwrmbx symptoms: No Has tested positive for COVID-19 in last 30 days: No Date of testin07/21/22 - Fully vaccinated w/both boosters Had contact w/person w/symptoms or Covid-19 (+) last 14 days: No Has High Risk Exposures ID'd by Health dept/Inf Control team: No 65 years or older:: Yes Lives in Assisted Living facility:: No Has a chronic lung disease or moderate to severe asthma:: No Has a serious heart condition:: Yes Immunocompromised:: No Severely obese (Body Mass Index of 40 or higher):: No Diabetic:: No Has chronic kidney disease undergoing dialysis:: No Has liver disease:: No - Past Medical Illness Medical History: Past Medical History (Last Updated 07/21/22 @ 09:52 by Akil Borjas, WELL TESTER, METAL WORK DUCT INSTALLER, BS) Arthritis of both knees M17.0 Atrial fibrillation I48.91 Bilateral carotid artery stenosis I65.23 Bilateral carotid artery stenosis I65.23 Cardiomyopathy I42.9 Chronic diastolic (congestive) heart failure I50.32 Chronic systolic CHF (congestive heart failure), NYHA class 3 I50.22 Coronary artery disease I25.10 Erectile dysfunction N52.9 History of claustrophobia Z86.59 History of palpitations Z87.898 Hyperlipemia E78.5 Hypertension I10 ICD (implantable cardioverter-defibrillator) in place Z95.810 Mitral regurgitation I34.0 Myocardial infarct I21.9 Non-smoker Z78.9 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 Pacemaker Z95.0 Medtronic - Past Surgical History Surgical History: Past Surgical History (Last Updated 07/21/22 @ 10:02 by Akil Borjas, WELL TESTER, METAL WORK DUCT INSTALLER, BS) History of percutaneous coronary intervention Z98.61 Hx of CABG Z95.1 S/p bilateral carotid endarterectomy Z98.890 S/P CABG (coronary artery bypass graft) Z95.1 1994 Status post implantation of mitral valve leaflet clip Z98.890, Z95.818 May 2022 Surgical History: coronary bypass surgery, - - carotid endarterectomy Social History - Smoking History Smoking Status: Never smoker - Alcohol Use Alcohol Usage: No - Substance Abuse Hx Substance Use: No - Occupation Occupation (List type of work in comments):: Retired - Hobbies, Recreation, Social Activities Hobbies: Other - Model trains and toy adn train shows. Recreational Activities: I am able to engage in all my recreational activities Social Environment - Status Marital Status: - Current Living Arrangements Living Environment:: Spouse - Children How many children do you have?: 2 - [facility] Do any of your children live nearby?: Yes - Safety Do you feel safe in your surroundings?: Yes - Assistance Do you need any assistance at home?: no Review of Systems - Review of Systems Hints: Right click = Denies (Slash). Left click = Reports ([place]) Review of Present Symptoms: Reports: Heart Arrhythmia/Irregularities - History of paroxysmal atrial fibrillation maintained on amiodarone and anticoagulation, Appetite - Normal, Appetite - Special Diet - NO sodium, no caffeine, low fat, Sleep - Normal. Denies: Shortness of Breath at Rest, Shortness of Breath with Exertion, Angina, Dizziness/Lightheadedness, Fatigue - Pain Is Patient Pain Free?: Yes Pain Location: none Pain Level: 0/10 Risk Factor Assessment - Vital Signs Temperature: 97.5 F Respiratory Rate: 14 Pulse Ox: 98 Blood Pressure: 109/58 - Pulse Pulse Rate: 86 Pulse Rhythm: Regular - Ventricular paced rhythm - Hypertension Blood Pressure Sitting - Left Arm: 109/58 - Blood Cholesterol/Lipids Total Cholesterol (mg/dL) Goal = less than 200 mg/dL: 84 - 09/13/2020 HDL Cholesterol (mg/dL) Goal = less than 40 mg/dL: 39 LDL Cholesterol (mg/dL) Goal = less than 70 mg/dL: 34 Triglycerides (mg/dL) Goal = less than 150 mg/dL: 57 - Obesity Height: 5 ft 7 in Weight:: 147 lb Weight in Pounds: 147.0 lbs Weight Source: Stated by Patient Body Mass Index (BMI): 23.0 Nutritional Referral for Obesity: No - Physical Inactivity Physical Inactivity: Reg Exercise 30 min/day - Risk Stratification Risk Guidelines: Lowest Risk: Risk Factor for Smoking, Risk Factor for Dyslipidemia, Risk Factor for Diabetes, Risk Factor for Obesity, Risk Factor for Hypertension, Risk Factor for Sedentary Lifestyle, Risk Factor for Depression Motivation - Motivation to Participate On a scale of 1 to 10, how prepared are you to commit to attending program?: 10 What do you see as barriers to successfully being able to complete the program?: arthritis in both knees What do you see as the benefits of succesfully completing the program? In other words, what do you hope to get out of participating in the program?: stregnth back, lost alot of strength and weight Are there issues you are dealing with that will interfere with completing the program?: bilateral knee arthritis Do you have a spouse or signficant other, family or friends who will help support you to complete the program?: Yes
--- NOTE | 2022-07-21 09:30 | CR.ITP_ITS ---
Diagnosis - General Information Admitting Diagnosis: S/P Mitral Valve Clip, previous [place], CABG and PTCA. Secondary Diagnosis: HTN, HLD, CAD Personal Learning Style:: Audio/Visual Barriers to Learning: Vision Impairment Stage of change r/t lifestyle modifications:: Action Gave educational material for:: Treating Heart Disease, Emotions & Heart Disease, Stress Management & Relaxation, Sleep Disorders & Heart Disease, How The Heart Works, What it means to have Heart Disease, How Coronary Artery Disease is Diagnosed, Heart Procedures, What Heart Medications Do, Risk Factors & Modifications, Living an Active Life, Nutrition - Education/Goals Individual Counseling: Initial Assessment: Abnormal Cholesterol Levels, High Blood Pressure Cardiac Rehabilitation Goals: 1. Maintain the individual as the primary focus of care. 2. To improve the patient's quality of life. 3. Identification of cardiac risk factors and provide cardiac risk factor management. 4. Enhance the psychosocial status of the patient. 5. Reconditioning enough to allow the patient to resume customary activities. 6. Control symptoms of cardiac disease Personal Goals: Initial Assessment: Improve energy level, Improve muscle strength and endurance, Control risk factors (learn risk factor modification) Scale for measuring improvement of personal goals: Enter appropriate number in Comments. 2 = Unchanged. 3 = Slightly Better. 4 = Moderate Improvement. 5 = Met my Goal - Diagnosis & Disease Process Outcomes/Goals: Pt IDs own risk factors & lifestyle modifications by Session 10, Verbalizes symptoms of angina & response by session 3., Pt independently manages Plan/Interventions: Assist Pt to ID & engage in lifestyle modification to reduce CVD risk, Instruct on individual risk factors, Review symptoms of angina & emergency actions, Review secondary diagnosis & identify educational needs. - Safety Referral to Physical Therapy: No Referral to [facility] Case Management: No Fall Risk Assessed:: Yes Assistive Devices:: None Exercise - Initial Assessment - Visit Date of Eval: 07/21/22 Session #:: 0 - Pre-cardaic Rehab evaluation Mets: Pre-: >7 METS for 30 minutes by discharge - Physician Prescribed Exercise Modalities: Treadmill, Airdyne, NuStep Frequency: 3x/week for 12 weeks [36 sessions] Intensity: 60-80% of age predicted maximum heart rate reserve Duration: 30 - 45 minutes - 90 Target Heart Rate:: 90-104 then 104-118 Resting Blood Pressure: 109/58 EKG Type: Ventricular Paced Rhythm Current Physical Activity or Exercising minutes: BEfore everything happened spend 30 to 45 minutes on treadmill and bike - Outcomes & Goals Goals:: Verbalizes understanding of THR, RPE & goal METS by session 6, Documents in home exercise log/reports 30 min aerobic 5 day/wk by DC, Demonstrates accurate pulse taking by DC - Intervention & Plan Exercise Program Goals: Instruct on personal THR & RPE, Instruct on MET level & personal MET goal, Show patient to take own pulse /validate performance until accurate, Instruct on home exercise - Physical Activity Home Exercise Physical Activity - Home Exercise: Safe Exercise, Warm-up, Self-monitoring, Cool-Down, Home Exercise > 30 min Daily, Sitting Time <3 hours/daily - Outcomes & Goals Outcomes/Goals: Demonstrates correct Warm-up/exercise Cool-Down (S3) if = 2.5 METs, Verbalizes symptoms of exercise intolerance by Session 3 (S3), Demonstrate safe equipment use (S3) & follows exercise prescrition (6) - Intervention & Plan Plan/Intervention: Instruct warm-up & cool-down if exercising at > 2 METs, Instruct on symptoms of exercise intolerance & actions to take, Instruct & monitor on saf, Assess intial functional capacity & safety risk Nutrition - Initial Assessment - Program Goals Nutrition Program Goals: LDL <100 optimal. 100 - 129 Near optimal. 130 - 159 Borderline High. 160 - 189 High. Total Cholesterol <200 desirable. 200 - 239 Borderline High. >/= 240 High. HDL < 40 Low >/=60 High. Triglycerides <150 desirable. <199 optimal. VlDL 5 - 40. HgbA1C <7%. BMI <25 Patient has diagnosis of Hyperlipidemia (ICD E78)?: Yes - Visit Date of Assessment:: 07/21/22 Session #:: 0 - Pre-cardai Rehab Evaluation - Cholesterol/Lipids (Other Core Measures) Triglycerides (mg/dL): 57 - 09/13/2020 Total Cholesterol (mg/dL): 84 LDL Cholesterol (mg/dL): 34 HDL Cholesterol (mg/dL): 39 Determine presence & major risk factors that modify LDL goal: Hypertension or hypertensive medication, Low HDL cholesterol <40 mg/dL*, Family history of premature CHD in Male < 55 years: female <65 yearsFa, Age men > 45 years; women >/= 55 years Outcomes/Goals: Pt IDs own risk factors & lifestyle modifications by Session 10, Verbalizes symptoms of angina & response by session 3., Pt independently manages Intervention/Plan: Instruct on personal lipid levels & lipid goals/NCEP guidelines, Instruct on cholesterol - Diabetes (Other Core Measures) Diabetes Type: Not Applicable - Weight Mgt (Other Care) Not Applicable: Yes Height: 5 ft 7 in Weight:: 147 lb - weighs daily BID BMI: 23.0 Diagnosis Overweight/Obesity BMI> 30% ICD-10 E66: No Diagnosis High BMI/Morbid Obesity BMI> 35% ICD-10 Z68: No Outcomes/Goals: Pt sets, maintains & shows weight loss goal & trend during rehab Intervention/Plan: Instruct on ideal BMI & set weight loss goal w/patient, Assist pt to ID & incorporate diet changes for weight loss by S9, Encourage goal of using 250-300dcal per session for weight loss - Healthy Eating Habits Will attend diet classes:: Yes Outcomes/Goals:: Consume diet rich in vegs,fruits,whole grain/high fiber,fish,lean meat, Limit sat/trans fats,cholesterol & added salts & sugars Intervention/Plan:: Assess current eating habits - Education Gave educational materials for:: Healthy eating Nutrition - 30-Day Assessment Nutrition - 60-Day Assessment Nutrition - 90-Day Assessment Nutrition - Final Assessment Core - Initial Assessment - Visit Date of Eval: 07/21/22 Session #:: 0 - Pre-cardaic Rehab evaluation - Medication Compliance Preventative Medication(s):: Aspirin, HAILEE inhibitor, Statin/lipid, Beta mark, Eliquis H/O mental health issues: depression, anxiety, or addiction?: No Doesn?t believe in the benefits of treatment?: No Believes medications are unnecessary or harmful?: No Has a concern about medication side effects?: No Expresses concern over the cost of medications?: No Outcomes/Goals: Verbalizes medications,desired effect & common side effects @ DC, Pt self-reports following medication regimen, Keeps card in wallet w/m edications listed by DC Interventions/plans: Instruct on medication effects & side effects, Review medication list w/patient every two weeks, Instruct importance of taking meds as ordered & assist problem solving - Tobacco Use Tobacco Use: Non-smoker - Hypertension Hypertension Diagnosis:: Hypertension ICD-10 I10 Resting Blood Pressure:: 109/58 [place] [employer] Hypertension Guidelines: [place] [employer] Hypertension Guidelines. Normal BP Less than 120/80. Elevated BP 120/80. Hypertension Stage 1: BP 130-139/80-89. Hypertesnion Stage 2: BP 140 or higher/90 or higher. Hypertension Crisis: BP higher than 180/120 Outcomes/Goals: Able to verbalize/achieve optimal blood pressure <130/80, Incorporates diet changes & exercise for blood pressure control by DC Interventions/plan: Instruct on optimal blood pressure, hypertension & medications, Instruct on effects of sodium, alcohol, stress, exercise &hypertension - Tobacco Cessation Referral Smoking Cessation Referral:: No Individual Education/Counseling:: No Education Schedule Given:: Yes Core - 30-Day Assessment Core - 60-Day Assessment Core - 90 Day Assessment Core - Final Assessment Psychosocial - Initial Assess - VIsit Date of Eval: 07/21/22 Session #:: 0 - pre-cardiac rehab evaluation Not Applicable: Yes History of previous Mental disease:: No - Psychosocial Test Tool Used:: Yany Gilmore QOL Cardiac, PHQ-9 Questionnaire phq-9 Severity: Severity. 1-4 Minimal Depression. 5-9 Mild Depression. 10-14 Moderate Depression. 15-19 Moderately Sever Depression. 20-27 Severe Depression. Rule: - Referral to Behavioral Health PS - Interventions: Yes Attend Stress Management Classes, No Referral to Behavioral Health if PHQ-9 score >9:, No Referral to [facility], No Referral to Physician if PHQ-9 if score is 5-9: - Outcomes/Goals: See list Psychosocial Outcomes/Goals:: ID's personal stressors & 2 strategies to manage stress by discharge - Intervention/Plan: See List Interventions/Plan:: Assess stressors,coping strategies & signs of derpression on admission, Instruct/assist pt to develop coping & personal stress Mgt strategies, Instruct patient to recognize signs & symptoms of depression, Instruct patient to recog Psychosocial - 30-Day Assess Psychosocial - 60-Day Assess Psychosocial - 90-Day Assess Psychosocial - Final Assessmen Patient Health Questionnaire Initial Assessment 1. Little interest or pleasure in doing things: Not at all 2. Feeling down, depressed, or hopeless: Not at all 3. Trouble falling or staying asleep, or sleeping too much: Not at all 4. Feeling tired or having little energy: Not at all 5. Poor appetite or overeating: Not at all 6. Feeling bad about yourself -- or that you are a failure or have let yourself or your family down: Not at all 7. Trouble concentrating on things, such as reading the newspaper or watching television: Not at all 8. Moving or speaking so slowly that other people could have noticed. Or the opposite - being so fidgety or restless that you have been moving around a lot more than usual: Not at all 9. Thoughts that you would be better off , or of hurting yourself in some way: Not at all How difficult have these problems made it for you to do your work, take care of things at home, or get along with other people?: Not difficult at all Total Score: 0 DESTINY-Q SV Test - Statements CAD is a disease of the arteries in the heart: True Examples of risk factors for heart disease: True Angina is chest pain or discomfort: I Don't Know The benefits of resistance training include: True Eating more meat and dairy products: False Anti-platelet medications such as aspirin are important: True The only effective way to manage stress: False An exercise warm-up slowly increases heart rate: I Don't Know Prepared, processed foods usually have high sodium: True Depression is common after a heart attack: False The statin medications lower cholesterol: I Don't Know To control blood pressure, lower the amount of sodium: True If someone gets chest discomfort during walking: False Transfats are partially hydrogenated vegetable oils: I Don't Know Sleep apnea that is not treated increases the risk: I Don't Know To control cholesterol, one should become a vegetarian: False Someone knows if he/she is exercising at the right level: I Don't Know Diabetes cannot be prevented with exercise & health eating: True Stress is a large risk for heart attack: True A diet that can help lower blood pressure is rich in: True - Total Score Total Correct Responses: 11 Self-Efficacy Initial Assessment We would like to know how confident you are in doing certain activities. Please select your confidence level for:: Select your confidence level for the following using the scale 1-10 where 1 is not at all confident and 10 is totally confident. Your score is the average of all 6 responses. Fatigue: How confident are you that you can keep the fatigue caused by your disease from interfering with the things you want to do? Select Number: 10 Physical Discomfort or Pain: How confident are you that you can keep the physical discomfort or pain of your disease from interfering with the things you want to do? Select Number: 10 Emotional Distress: How confident are you that you can keep the emotional distress caused by your disease from interfering with the things you want to do? Select Number: 10 Other Symptoms or Health Problems: How confident are you that you can keep other symptoms or health problems from interfering with the things you want to do? Select Number: 5 Different Tasks and Activities: How confident are you that you can do the different tasks and activities needed to manage your health condition so as to reduce your need to see a doctor? Select Number: 8 Medication: How confident are you that you can do things other than just taking medication to reduce how much your illness affects your everyday life? Select Number: 9 Total Score:: 8 Nutrition Survey - Nutrition Survey Initial Have you lost >10 lbs over the past 2 months without trying?: Yes Are you following a special diet at home for diabetes, low fat, or low salt?: No Are you interested in meeting with a dietitian for help understanding your diet?: No Do you eat less than 3 meals a day?: No Do you eat fatty meats (ocon[place], sausage, ribs, etc), fried foods, desserts, large amounts of salad dressings, margarine, butter, or cheese most days?: No Do you have food allergies? [Enter types in comment field]: No Do you eat in restaurants more than 3 times a week?: No Do you season food with salt, seasoning salt, or garlic salt?: No Do you used canned, boxed, frozen meals, or soups, seasoning packets?: No - Very confident in his diet. Has already seen nnutional therapy and strictly follows his diet. Total Score:: 1
[2022-07-21 10:08] VITALS: BP 109/58; PULSE 86; RESP 14; TEMP 36.4; O2SAT 98; BMI 23.0
[2022-07-21 10:40] VITALS: BP 109/58; BMI 23.0
== END | disposition home or self-care (01) ==
PROVIDERS: PCP Family Medicine
DX: I25.2 Old myocardial infarction (principal); Z95.1 Presence of aortocoronary bypass graft

== ENCOUNTER 2022-07-26 08:11 | Outpatient (RCR) | payer MEDICARE, SELFPAY ==
[2022-07-21 10:40] VITALS: BMI 23.0
== END 2022-07-27 23:59 ==
LOC: CR 08:11
PROVIDERS: PCP Family Medicine
DX: I34.0 Nonrheumatic mitral (valve) insufficiency (principal); I50.22 Chronic systolic (congestive) heart failure
CPT/HCPCS: 93798

== ENCOUNTER 2022-08-27 08:00 | Outpatient (RCR) | payer MEDICARE, SELFPAY ==
[2022-07-21 10:40] VITALS: BMI 23.0
--- NOTE | 2022-08-18 09:39 | CR.ITP_ITS ---
Diagnosis Exercise - 30-day Assessment - Visit Date of Eval: 08/18/22 Session #:: 9 - Patient has missed 3 sessions to date. - Physician Prescribed Exercise Modalities: Treadmill, Airdyne, NuStep Frequency: 3x/week for 12 weeks [36 sessions] Intensity: 60-80% of age predicted maximum heart rate reserve Duration: 30 - 45 minutes Current METSs:: 3.0 Target Heart Rate:: 104-118 Current RPE:: 11-15 Maximum Excercise HR:: 111 Resting Blood Pressure: 98/46 Maximum Exercise Blood Pressure: 124/44 EKG Type: Ventricular paced rhythm w/PVCs, short run of SVT today. Current Physical Activity or Exercising minutes: 37 - Outcomes & Goals Goals:: Verbalizes understanding of THR, RPE & goal METS by session 6, Documents in home exercise log/reports 30 min aerobic 5 day/wk by DC, Demonstrates accurate pulse taking by DC - Intervention & Plan Exercise Program Goals: Instruct on personal THR & RPE, Instruct on MET level & personal MET goal, Show patient to take own pulse /validate performance until accurate, Instruct on home exercise - 30-day Reassessments 30 day Reassessments:: Progressing - Physical Activity Home Exercise Physical Activity - Home Exercise: Safe Exercise, Warm-up, Self-monitoring, Cool-Down, Home Exercise > 30 min Daily, Sitting Time <3 hours/daily - Outcomes & Goals Outcomes/Goals: Demonstrates correct Warm-up/exercise Cool-Down (S3) if = 2.5 METs, Verbalizes symptoms of exercise intolerance by Session 3 (S3), Demonstrate safe equipment use (S3) & follows exercise prescrition (6) - Intervention & Plan Plan/Intervention: Instruct warm-up & cool-down if exercising at > 2 METs, Instruct on symptoms of exercise intolerance & actions to take, Instruct & monitor on saf, Assess intial functional capacity & safety risk - 30-day Reassessments 30 day Reassessments:: Progressing Nutrition - Initial Assessment Nutrition - 30-Day Assessment - Program Goals Nutrition Program Goals: LDL <100 optimal. 100 - 129 Near optimal. 130 - 159 Borderline High. 160 - 189 High. Total Cholesterol <200 desirable. 200 - 239 Borderline High. >/= 240 High. HDL < 40 Low >/=60 High. Triglycerides <150 desirable. <199 optimal. VlDL 5 - 40. HgbA1C <7%. BMI <25 Patient has diagnosis of Hyperlipidemia (ICD E78)?: Yes - Visit Date of Assessment:: 08/18/22 Session #:: 9 - Cholesterol/Lipids (Other Core Measures) Triglycerides (mg/dL): 57 Total Cholesterol (mg/dL): 84 LDL Cholesterol (mg/dL): 34 HDL Cholesterol (mg/dL): 39 Determine presence & major risk factors that modify LDL goal: Hypertension or hypertensive medication, Age men > 45 years; women >/= 55 years Outcomes/Goals: Pt IDs own risk factors & lifestyle modifications by Session 10, Verbalizes symptoms of angina & response by session 3., Pt independently manages Intervention/Plan: Instruct on personal lipid levels & lipid goals/NCEP guidelines, Instruct on cholesterol Referral to dietitian:: Yes - Diabetes (Other Core Measures) Diabetes Type: Not Applicable - Weight Mgt (Other Care) Not Applicable: Yes Height: 5 ft 7 in Weight:: 145 lb 8 oz BMI: 22.8 Diagnosis Overweight/Obesity BMI> 30% ICD-10 E66: No Diagnosis High BMI/Morbid Obesity BMI> 35% ICD-10 Z68: No Outcomes/Goals: Pt sets, maintains & shows weight loss goal & trend during rehab Intervention/Plan: Instruct on ideal BMI & set weight loss goal w/patient 30 day Reassessments:: Met - Healthy Eating Habits Will attend diet classes:: Yes Outcomes/Goals:: Consume diet rich in vegs,fruits,whole grain/high fiber,fish,lean meat, Limit sat/trans fats,cholesterol & added salts & sugars Intervention/Plan:: Assess current eating habits 30-day Reassessments:: Met - Education Gave educational materials for:: Healthy eating Nutrition - 60-Day Assessment Nutrition - 90-Day Assessment Nutrition - Final Assessment Core - Initial Assessment Core - 30-Day Assessment - Visit Date of Eval: 08/18/22 Session #:: 9 - Medication Compliance Preventative Medication(s):: Aspirin, Statin/lipid, Beta mark, Eliquis H/O mental health issues: depression, anxiety, or addiction?: No Doesn?t believe in the benefits of treatment?: No Believes medications are unnecessary or harmful?: No Has a concern about medication side effects?: No Expresses concern over the cost of medications?: No Outcomes/Goals: Verbalizes medications,desired effect & common side effects @ DC, Pt self-reports following medication regimen, Keeps card in wallet w/medications listed by DC Interventions/plans: Instruct on medication effects & side effects, Review medication list w/patient every two weeks, Instruct importance of taking meds as ordered & assist problem solving 30-day Reassessments:: Met - Tobacco Use Tobacco Use: Non-smoker - Hypertension Hypertension Diagnosis:: Hypertension ICD-10 I10 Resting Blood Pressure:: 98/46 [place] [employer] Hypertension Guidelines: [place] [employer] Hypertension Guidelines. Normal BP Less than 120/80. Elevated BP 120/80. Hypertension Stage 1: BP 130-139/80-89. Hypertesnion Stage 2: BP 140 or higher/90 or higher. Hypertension Crisis: BP higher than 180/120 Peak Exercise Blood Pressure:: 124/44 Outcomes/Goals: Able to verbalize/achieve optimal blood pressure <130/80, Incorporates diet changes & exercise for blood pressure control by DC Interventions/plan: Instruct on optimal blood pressure, hypertension & medications, Instruct on effects of sodium, alcohol, stress, exercise &hypertension 30 day Reassessments:: Progressing - Tobacco Cessation Referral Smoking Cessation Referral:: No Individual Education/Counseling:: No Education Schedule Given:: Yes - Patient participates in group education classes Core - 60-Day Assessment Core - 90 Day Assessment Core - Final Assessment Psychosocial - Initial Assess Psychosocial - 30-Day Assess - VIsit Date of Eval: 08/18/22 Session #:: 9 Not Applicable: Yes History of previous Mental disease:: No - Psychosocial Test Tool Used:: PHQ-9 Questionnaire phq-9 Severity: Severity. 1-4 Minimal Depression. 5-9 Mild Depression. 10-14 Moderate Depression. 15-19 Moderately Sever Depression. 20-27 Severe Depression. Rule: - Referral to Behavioral Health PS - Interventions: Yes Attend Stress Management Classes, No Referral to Behavioral Health if PHQ-9 score >9:, No Referral to [facility], No Referral to Physician if PHQ-9 if score is 5-9: - Outcomes/Goals: See list Psychosocial Outcomes/Goals:: ID's personal stressors & 2 strategies to manage stress by discharge - Intervention/Plan: See List Interventions/Plan:: Assess stressors,coping strategies & signs of derpression on admission, Instruct/assist pt to develop coping & personal stress Mgt strategies, Instruct patient to recognize signs & symptoms of depression, I nstruct patient to recog - 30-day Reassessments: 30 day Reassessments:: Progressing - Patient needs positive encouragement and reinforcement that he is doing better. Psychosocial - 60-Day Assess Psychosocial - 90-Day Assess Psychosocial - Final Assessmen Patient Health Questionnaire 30-Day Re-eval Assessment 1. Little interest or pleasure in doing things: Not at all 2. Feeling down, depressed, or hopeless: Not at all 3. Trouble falling or staying asleep, or sleeping too much: Not at all 4. Feeling tired or having little energy: Not at all 5. Poor appetite or overeating: Not at all 6. Feeling bad about yourself -- or that you are a failure or have let yourself or your family down: Not at all 7. Trouble concentrating on things, such as reading the newspaper or watching television: Not at all 8. Moving or speaking so slowly that other people could have noticed. Or the opposite - being so fidgety or restless that you have been moving around a lot more than usual: Not at all 9. Thoughts that you would be better off , or of hurting yourself in some way: Not at all How difficult have these problems made it for you to do your work, take care of things at home, or get along with other people?: Not difficult at all Total Score: 0 Self-Efficacy 30-Day Re-eval Assessment We would like to know how confident you are in doing certain activities. Please select your confidence level for:: Select your confidence level for the following using the scale 1-10 where 1 is not at all confident and 10 is totally confident. Your score is the average of all 6 responses. Fatigue: How confident are you that you can keep the fatigue caused by your disease from interfering with the things you want to do? Select Number: 10 Physical Discomfort or Pain: How confident are you that you can keep the physical discomfort or pain of your disease from interfering with the things you want to do? Select Number: 10 Emotional Distress: How confident are you that you can keep the emotional distre ss caused by your disease from interfering with the things you want to do? Select Number: 10 Other Symptoms or Health Problems: How confident are you that you can keep other symptoms or health problems from interfering with the things you want to do? Select Number: 8 Different Tasks and Activities: How confident are you that you can do the different tasks and activities needed to manage your health condition so as to reduce your need to see a doctor? Select Number: 8 Medication: How confident are you that you can do things other than just taking medication to reduce how much your illness affects your everyday life? Select Number: 10 Total Score:: 9 Nutrition Survey
[2022-08-18 09:51] VITALS: BP 124/44; BP 98/46; BMI 22.8
== END 2022-08-27 23:59 ==
LOC: CR 08:00
PROVIDERS: PCP Family Medicine
DX: I34.0 Nonrheumatic mitral (valve) insufficiency (principal); I50.22 Chronic systolic (congestive) heart failure
CPT/HCPCS: 93798

== ENCOUNTER 2022-09-24 08:00 | Outpatient (RCR) | payer MEDICARE, SELFPAY ==
[2022-08-18 09:51] VITALS: BMI 22.8
[2022-08-28 02:08] VITALS: BP 124/44; BP 98/46
--- NOTE | 2022-09-17 08:06 | CR.ITP_ITS ---
Diagnosis Exercise - 60-day Assessment - Visit Date of Eval: 09/17/22 Session #:: 22 - Physician Prescribed Exercise Modalities: Treadmill, Airdyne, NuStep Frequency: 3x/week for 12 weeks [36 sessions] Intensity: 60-80% of age predicted maximum heart rate reserve Current METSs:: 5 Target Heart Rate:: 104-118 Current RPE:: 11-13 Maximum Excercise HR:: 111 Resting Blood Pressure: 96/42 Maximum Exercise Blood Pressure: 98/40 EKG Type: Vent paced/NSR vs abarrency with rare occas PVC - Outcomes & Goals Goals:: Verbalizes understanding of THR, RPE & goal METS by session 6, Documents in home exercise log/reports 30 min aerobic 5 day/wk by DC, Demonstrates accurate pulse taking by DC, Other additional outcome/goals: see below - Intervention & Plan Exercise Program Goals: Instruct on personal THR & RPE, Instruct on MET level & personal MET goal, Show patient to take own pulse /validate performance until accurate, Instruct on home exercise, Other additional plan/int - 30-day Reassessments 30 day Reassessments:: Progressing - THR explained - Physical Activity Home Exercise Physical Activity - Home Exercise: Safe Exercise, Warm-up, Self-monitoring, Cool-Down, Home Exercise > 30 min Daily, Sitting Time <3 hours/daily - Outcomes & Goals Outcomes/Goals: Demonstrates correct Warm-up/exercise Cool-Down (S3) if = 2.5 METs, Verbalizes symptoms of exercise intolerance by Session 3 (S3), Demonstrate safe equipment use (S3) & follows exercise prescrition (6), Other: See below - Intervention & Plan Plan/Intervention: Instruct warm-up & cool-down if exercising at > 2 METs, Instruct on symptoms of exercise intolerance & actions to take, Instruct & monitor on saf, Assess intial functional capacity & safety risk, Other See below - 30-day Reassessments 30 day Reassessments:: Progressing - warm up explained Nutrition - Initial Assessment Nutrition - 30-Day Assessment Nutrition - 60-Day Assessment - Program Goals Nutrition Program Goals: LDL <100 optimal. 100 - 129 Near optimal. 130 - 159 Borderline High. 160 - 189 High. Total Cholesterol <200 desirable. 200 - 239 Borderline High. >/= 240 High. HDL < 40 Low >/=60 High. Triglycerides <150 desirable. <199 optimal. VlDL 5 - 40. HgbA1C <7%. BMI <25 Patient has diagnosis of Hyperlipidemia (ICD E78)?: Yes - Visit Date of Assessment:: 09/17/22 Session #:: 22 - Cholesterol/Lipids (Other Core Measures) Determine presence & major risk factors that modify LDL goal: Hypertension or hypertensive medication, Low HDL cholesterol <40 mg/dL*, Family history of premature CHD in Male < 55 years: female <65 yearsFa, Age men > 45 years; women >/= 55 years Outcomes/Goals: Pt IDs own risk factors & lifestyle modifications by Session 10, Verbalizes symptoms of angina & response by session 3., Pt independently manages, Other Additional Outcomes/Goals: Intervention/Plan: Advocate for lipid panel cholesterol medication if applicable, Instruct on personal lipid levels & lipid goals/NCEP guidelines, Instruct on cholesterol, Other additional plan/int Referral to dietitian:: Yes 30-day Reassessments:: Progressing - risk factors explained - Weight Mgt (Other Care) Height: 5 ft 7 in Weight:: 70.307 kg BMI: 24.3 Diagnosis Overweight/Obesity BMI> 30% ICD-10 E66: No Diagnosis High BMI/Morbid Obesity BMI> 35% ICD-10 Z68: No Outcomes/Goals: Pt sets, maintains & shows weight loss goal & trend during rehab, Other additional outcomes/goals Intervention/Plan: Instruct on ideal BMI & set weight loss goal w/patient, Assist pt to ID & incorporate diet changes for weight loss by S9, Refer to Structured Weight Loss program as appropriate, Encourage goal of using 250- 300dcal per session for weight loss, Other additional plan/interventions 30 day Reassessments:: Progressing - referral to see machine splitter - Healthy Eating Habits Will attend diet classes:: Yes Outcomes/Goals:: Consume diet rich in vegs,fruits,whole grain/high fiber,fish,lean meat, Limit sat/trans fats,cholesterol & added salts & sugars, Other additional outcome/goals: Intervention/Plan:: Assess current eating habits, Other Additional plan/interventions 30-day Reassessments:: Progressing - refferal to see machine splitter - Education Gave educational materials for:: Signs & symptoms of hypoglycemia, Signs & symptoms of hyperglycemia, Relate diabetes to coronary artery disease, Healthy eating Nutrition - 90-Day Assessment Nutrition - Final Assessment Core - Initial Assessment Core - 30-Day Assessment Core - 60-Day Assessment - Visit Date of Eval: 09/17/22 Session #:: 22 - Medication Compliance Preventative Medication(s):: Aspirin, Statin/lipid, Beta mark, Eliquis H/O mental health issues: depression, anxiety, or addiction?: No Doesn?t believe in the benefits of treatment?: No Believes medications are unnecessary or harmful?: No Has a concern about medication side effects?: No Expresses concern over the cost of medications?: No Outcomes/Goals: Verbalizes medications,desired effect & common side effects @ DC, Pt self-reports following medication regimen, Keeps card in wallet w/medications listed by DC, Other additional outcome/goals: Interventions/plans: Instruct on medication effects & side effects, Review medication list w/patient every two weeks, Instruct importance of taking meds as ordered & assist problem solving, Other additional 30-day Reassessments:: Progressing - encouraged to take meds - Tobacco Use Tobacco Use: Non-smoker - Hypertension Hypertension Diagnosis:: Hypertension ICD-10 I10 Resting Blood Pressure:: 96/42 [place] [employer] Hypertension Guidelines: [place] [employer] Hypertension Guidelines. Normal BP Less than 120/80. Elevated BP 120/80. Hypertension Stage 1: BP 130-139/80-89. Hypertesnion Stage 2: BP 140 or higher/90 or higher. Hypertension Crisis: BP higher than 180/120 Peak Exercise Blood Pressure:: 98/40 Outcomes/Goals: Able to verbalize/achieve optimal blood pressure <130/80, Incorporates diet changes & exercise for blood pressure control by DC, Other additional outcomes/goals Interventions/plan: Instruct on optimal blood pressure, hypertension & medications, Instruct on effects of sodium, alcohol, stress, exercise &hypertension, Other additional plan/interventions 30 day Reassessments:: Progressing - encouraged to take meds - Tobacco Cessation Referral Smoking Cessation Referral:: No Individual Education/Counseling:: No Education Schedule Given:: Yes Core - 90 Day Assessment Core - Final Assessment Psychosocial - Initial Assess Psychosocial - 30-Day Assess Psychosocial - 60-Day Assess - VIsit Date of Eval: 09/17/22 Session #:: 22 History of previous Mental disease:: No Psychosocial - 90-Day Assess Psychosocial - Final Assessmen Patient Health Questionnaire 60-Day Re-eval Assessment 1. Little interest or pleasure in doing things: Not at all 2. Feeling down, depressed, or hopeless: Not at all 3. Trouble falling or staying asleep, or sleeping too much: Not at all 4. Feeling tired or having little energy: Not at all 5. Poor appetite or overeating: Not at all 6. Feeling bad about yourself -- or that you are a failure or have let yourself or your family down: Not at all 7. Trouble concentrating on things, such as reading the newspaper or watching television: Not at all 8. Moving or speaking so slowly that other people could have noticed. Or the opposite - being so fidgety or restless that you have been moving around a lot more than usual: Not at all 9. Thoughts that you would be better off , or of hurting yourself in some way: Not at all How difficult have these problems made it for you to do your work, take care of things at home, or get along with other people?: Not difficult at all Total Score: 0 Self-Efficacy 60-Day Re-eval Assessment We would like to know how confident you are in doing certain activities. Please select your confidence level for:: Select your confidence level for the following using the scale 1-10 where 1 is not at all confident and 10 is totally confident. Your score is the average of all 6 responses. Fatigue: How confident are you that you can keep the fatigue caused by your disease from interfering with the things you want to do? Select Number: 10 Physical Discomfort or Pain: How confident are you that you can keep the physical discomfort or pain of your disease from interfering with the things you want to do? Select Number: 10 Emotional Distress: How confident are you that you can keep the emotional distress caused by your disease from interfering with the things you want to do? Select Number: 10 Other Symptoms or Health Problems: How confident are you that you can keep other symptoms or health problems from interfering with the things you want to do? Select Number: 8 Different Tasks and Activities: How confident are you that you can do the different tasks and activities needed to manage your health condition so as to reduce your need to see a doctor? Select Number: 8 Medication: How confident are you that you can do things other than just taking medication to reduce how much your illness affects your everyday life? Select Number: 10 Total Score:: 9 Nutrition Survey
[2022-09-17 08:17] VITALS: BP 96/42; BP 98/40; BMI 24.3
== END 2022-09-26 23:59 ==
LOC: CR 08:00
PROVIDERS: PCP Family Medicine
DX: I34.0 Nonrheumatic mitral (valve) insufficiency (principal); I50.22 Chronic systolic (congestive) heart failure
CPT/HCPCS: 93798

== ENCOUNTER 2022-10-27 08:00 | Outpatient (RCR) | payer MEDICARE, SELFPAY ==
[2022-09-17 08:17] VITALS: BMI 24.3
[2022-09-27 00:41] VITALS: BP 96/42; BP 98/40
--- NOTE | 2022-10-18 08:01 | PCM.CR.ITP ---
Diagnosis Exercise - 90-day Assessment - Visit Date of Eval: 10/18/22 Session #:: 33 - Physician Prescribed Exercise Modalities: Treadmill, Airdyne, NuStep Frequency: 3x/week for 12 weeks [36 sessions] Intensity: 60-80% of age predicted maximum heart rate reserve Current METSs:: 6 Target Heart Rate:: 104-118 Current RPE:: 12-13 Maximum Excercise HR:: 103 Resting Blood Pressure: 102/48 Maximum Exercise Blood Pressure: 112/54 EKG Type: Ventricular paced rhythm/NSR with rare to occas PVC - Outcomes & Goals Goals:: Verbalizes understanding of THR, RPE & goal METS by session 6, Documents in home exercise log/reports 30 min aerobic 5 day/wk by DC, Demonstrates accurate pulse taking by DC, Other additional outcome/goals: see below - Intervention & Plan Exercise Program Goals: Instruct on personal THR & RPE, Instruct on MET level & personal MET goal, Show patient to take own pulse /validate performance until accurate, Instruct on home exercise, Other additional plan/int - 30-day Reassessments 30 day Reassessments:: Met - Physical Activity Home Exercise Physical Activity - Home Exercise: Safe Exercise, Warm-up, Self-monitoring, Cool-Down, Home Exercise > 30 min Daily, Sitting Time <3 hours/daily - Outcomes & Goals Outcomes/Goals: Demonstrates correct Warm-up/exercise Cool-Down (S3) if = 2.5 METs, Verbalizes symptoms of exercise intolerance by Session 3 (S3), Demonstrate safe equipment use (S3) & follows exercise prescrition (6), Other: See below - Intervention & Plan Plan/Intervention: Instruct warm-up & cool-down if exercising at > 2 METs, Instruct on symptoms of exercise intolerance & actions to take, Instruct & monitor on saf, Assess intial functional capacity & safety risk, Other See below - 30-day Reassessments 30 day Reassessments:: Met Nutrition - Initial Assessment Nutrition - 30-Day Assessment Nutrition - 60-Day Assessment Nutrition - 90-Day Assessment - Program Goals Nutrition Program Goals: LDL <100 optimal. 100 - 129 Near optimal. 130 - 159 Borderline High. 160 - 189 High. Total Cholesterol <200 desirable. 200 - 239 Borderline High. >/= 240 High. HDL < 40 Low >/=60 High. Triglycerides <150 desirable. <199 optimal. VlDL 5 - 40. HgbA1C <7%. BMI <25 Patient has diagnosis of Hyperlipidemia (ICD E78)?: Yes - Visit Date of Assessment:: 10/18/22 Session #:: 33 - Cholesterol/Lipids (Other Core Measures) Determine presence & major risk factors that modify LDL goal: Hypertension or hypertensive medication, Low HDL cholesterol <40 mg/dL*, Family history of premature CHD in Male < 55 years: female <65 yearsFa, Age men > 45 years; women >/= 55 years Outcomes/Goals: Pt IDs own risk factors & lifestyle modifications by Session 10, Verbalizes symptoms of angina & response by session 3., Pt independently manages, Other Additional Outcomes/Goals: Intervention/Plan: Advocate for lipid panel cholesterol medication if applicable, Instruct on personal lipid levels & lipid goals/NCEP guidelines, Instruct on cholesterol, Other additional plan/int Referral to dietitian:: No 30-day Reassessments:: Met - Weight Mgt (Other Care) Height: 5 ft 7 in Weight:: 71.441 kg BMI: 24.6 Diagnosis Overweight/Obesity BMI> 30% ICD-10 E66: No Diagnosis High BMI/Morbid Obesity BMI> 35% ICD-10 Z68: No Outcomes/Goals: Pt sets, maintains & shows weight loss goal & trend during rehab, Other additional outcomes/goals Intervention/Plan: Instruct on ideal BMI & set weight loss goal w/patient, Assist pt to ID & incorporate diet changes for weight loss by S9, Refer to Structured Weight Loss program as appropriate, Encourage goal of using 250-300dcal per session for weight loss, Other additional plan/interventions 30 day Reassessments:: Met - Healthy Eating Habits Will attend diet classes:: Yes Outcomes/Goals:: Consume diet rich in vegs,fruits,whole grain/high fiber,fish,lean meat, Limit sat/trans fats,cholesterol & added salts & sugars, Other additional outcome/goals: Intervention/Plan:: Assess current eating habits, Other Additional plan/interventions 30-day Reassessments:: Met - Education Gave educational materials for:: Signs & symptoms of hypoglycemia, Signs & symptoms of hyperglycemia, Relate diabetes to coronary artery disease, Healthy eating Nutrition - Final Assessment Core - Initial Assessment Core - 30-Day Assessment Core - 60-Day Assessment Core - 90 Day Assessment - Visit Date of Eval: 10/18/22 Session #:: 33 - Medication Compliance Preventative Medication(s):: Aspirin, Statin/lipid, Beta mark, Eliquis H/O mental health issues: depression, anxiety, or addiction?: No Doesn?t believe in the benefits of treatment?: No Believes medications are unnecessary or harmful?: No Has a concern about medication side effects?: No Expresses concern over the cost of medications?: No Outcomes/Goals: Verbalizes medications,desired effect & common side effects @ DC, Pt self-reports following medication regimen, Keeps card in wallet w/medications listed by DC, Other additional outcome/goals: Interventions/plans: Instruct on medication effects & side effects, Review medication list w/patient every two weeks, Instruct importance of taking meds as ordered & assist problem solving, Other additional 30-day Reassessments:: Met - Tobacco Use Tobacco Use: Non-smoker Do you use smokeless tobacco?: No 30-day Reassessments:: Met - Hypertension Hypertension Diagnosis:: Hypertension ICD-10 I10 Resting Blood Pressure:: 102/48 [place] [employer] Hypertension Guidelines: [place] [employer] Hypertension Guidelines. Normal BP Less than 120/80 Peak Exercise Blood Pressure:: 112/54 Outcomes/Goals: Able to verbalize/achieve optimal blood pressure <130/80, Incorporates diet changes & exercise for blood pressure control by DC, Other additional outcomes/goals Interventions/plan: Instruct on optimal blood pressure, hypertension & medications, Instruct on effects of sodium, alcohol, stress, exercise &hypertension, Other additional plan/interventions 30 day Reassessments:: Met - Tobacco Cessation Referral Smoking Cessation Referral:: No Individual Education/Counseling:: No Education Schedule Given:: Yes Core - Final Assessment Psychosocial - Initial Assess Psychosocial - 30-Day Assess Psychosocial - 60-Day Assess Psychosocial - 90-Day Assess - VIsit History of previous Mental disease:: No Psychosocial - Final Assessmen Patient Health Questionnaire 90-Day Re-eval Assessment 1. Little interest or pleasure in doing things: Not at all 2. Feeling down, depressed, or hopeless: Not at all 3. Trouble falling or staying asleep, or sleeping too much: Not at all 4. Feeling tired or having little energy: Not at all 5. Poor appetite or overeating: Not at all 6. Feeling bad about yourself -- or that you are a failure or have let yourself or your family down: Not at all 7. Trouble concentrating on things, such as reading the newspaper or watching television: Not at all 8. Moving or speaking so slowly that other people could have noticed. Or the opposite - being so fidgety or restless that you have been moving around a lot more than usual: Not at all 9. Thoughts that you would be better off , or of hurting yourself in some way: Not at all How difficult have these problems made it for you to do your work, take care of things at home, or get along with other people?: Not difficult at all Total Score: 0 Self-Efficacy 90-Day Re-eval Assessment We would like to know how confident you are in doing certain activities. Please select your confidence level for:: Select your confidence level for the following using the scale 1-10 where 1 is not at all confident and 10 is totally confident. Your score is the average of all 6 responses. Fatigue: How confident are you that you can keep the fatigue caused by your disease from interfering with the things you want to do? Select Number: 10 Physical Discomfort or Pain: How confident are you that you can keep the physical discomfort or pain of your disease from interfering with the things you want to do? Select Number: 10 Emotional Distress: How confident are you that you can keep the emotional distress caused by your disease from interfering with the things you want to do? Select Number: 10 Other Symptoms or Health Problems: How confident are you that you can keep other symptoms or health problems from interfering with the things you want to do? Select Number: 8 Different Tasks and Activities: How confident are you that you can do the different tasks and activities needed to manage your health condition so as to reduce your need to see a doctor? Select Number: 8 Medication: How confident are you that you can do things other than just taking medication to reduce how much your illness affects your everyday life? Select Number: 10 Total Score:: 9 Nutrition Survey
[2022-10-18 08:08] VITALS: BP 102/48; BP 112/54; BMI 24.6
== END 2022-10-27 23:59 ==
LOC: CR 08:00
PROVIDERS: PCP Family Medicine
DX: I34.0 Nonrheumatic mitral (valve) insufficiency (principal); I50.22 Chronic systolic (congestive) heart failure
CPT/HCPCS: 93798

== ENCOUNTER 2022-10-29 06:42 | Outpatient (RCR) | payer MEDICARE, SELFPAY ==
[2022-10-18 08:08] VITALS: BMI 24.6
[2022-10-28 00:34] VITALS: BP 102/48; BP 112/54
== END 2022-11-26 23:59 ==
LOC: CR 06:42
PROVIDERS: PCP Family Medicine
DX: I34.0 Nonrheumatic mitral (valve) insufficiency (principal); I50.22 Chronic systolic (congestive) heart failure
CPT/HCPCS: 93798